=== PATIENT | female | born 1940 | race Caucasian/White ===

== ENCOUNTER → 2018-04-27 09:49 | Outpatient (CLI) | payer MEDICARE, OTHER, SELFPAY ==
--- NOTE | 2018-04-27 | DI.MG.S_ITS ---
BILATERAL DIGITAL SCREENING MAMMOGRAM 3D/2D WITH CAD: 04/27/2018 CLINICAL: Routine screening. Comparison is made to exams dated: 04/14/2017 mammogram, 04/07/2016 mammogram, and 11/12/2014 mammogram - [facility]. The tissue of both breasts is heterogeneously dense. This may lower the sensitivity of mammography. Current study was also evaluated with a Computer Aided Detection (CAD) system. No significant masses, calcifications, or other findings are seen in either breast. There has been no significant interval change. IMPRESSION: NEGATIVE There is no mammographic evidence of malignancy. A 1 year screening mammogram is recommended. This exam was interpreted at Station ID: [id number]. NOTE: For mammograms, a report in lay terms will be sent to the patient. Approximately 15% of breast malignancies will not be visualized mammographically. In the management of a palpable breast mass, a negative mammogram must not discourage biopsy of a clinically suspicious lesion. Electronically Signed By: John vo/mo:04/27/2018 10:56:09 letter sent: Normal Exam ACR BI-RADS Category 1: Negative 3341F
== END ==
PROVIDERS: PCP Family Medicine; Visit Provider Family Medicine
DX: Z12.31 Encounter for screening mammogram for malignant neoplasm of breast (principal)
CPT/HCPCS: 77063; 77067

== ENCOUNTER → 2018-04-28 12:18 | Outpatient (CLI) | payer MEDICARE, OTHER, SELFPAY ==
--- NOTE | 2018-04-28 | DI.RAD.S_ITS ---
This blank DEXA report has been sent in error by the PACS system. The correct and complete report will be forthcoming in 1-2 days. Thank you for your patience and understanding. Dictated by: Sergio Montanez M.D. on 04/28/2018 at 14:31 Approved by: Sergio Montanez M.D. on 04/28/2018 at 14:32
== END ==
PROVIDERS: PCP Family Medicine; Visit Provider Family Medicine
DX: Z13.820 Encounter for screening for osteoporosis (principal); M81.0 Age-related osteoporosis without current pathological fracture; Z78.0 Asymptomatic menopausal state; E06.3 Autoimmune thyroiditis; Z87.891 Personal history of nicotine dependence; Z90.722 Acquired absence of ovaries, bilateral
CPT/HCPCS: 77080

== ENCOUNTER → 2019-05-22 07:54 | Outpatient (CLI) | payer MEDICARE, OTHER, SELFPAY ==
--- NOTE | 2019-05-22 | DI.MG.S_ITS ---
BILATERAL DIGITAL SCREENING MAMMOGRAM 3D/2D WITH CAD: 05/22/2019 CLINICAL: Routine screening. Comparison is made to exams dated: 04/27/2018 mammogram, 04/14/2017 mammogram, and 04/07/2016 mammogram - [facility]. The tissue of both breasts is heterogeneously dense. This may lower the sensitivity of mammography. Current study was also evaluated with a Computer Aided Detection (CAD) system. There are benign vascular calcifications in both breasts. There are mole markers on both breasts. No significant masses, calcifications, or other findings are seen in either breast. There has been no significant interval change. IMPRESSION: There is no mammographic evidence of malignancy. A 1 year screening mammogram is recommended. This exam was interpreted at Station ID: [id number]. NOTE: For mammograms, a report in lay terms will be sent to the patient. Approximately 15% of breast malignancies will not be visualized mammographically. In the management of a palpable breast mass, a negative mammogram must not discourage biopsy of a clinically suspicious lesion. Electronically Signed By: Sergey ellis/mo:05/22/2019 20:38:14 letter sent: Normal Exam ACR BI-RADS Category 2: Benign Finding(s) 3342F
== END ==
PROVIDERS: PCP Family Medicine; Visit Provider Family Medicine
DX: Z12.31 Encounter for screening mammogram for malignant neoplasm of breast (principal)
CPT/HCPCS: 77063; 77067

== ENCOUNTER → 2019-06-27 16:08 | Outpatient (ROUT) | payer MEDICARE, OTHER, SELFPAY ==
[2019-06-27 16:29] LABS: Influenza A - CEPHEID Flu A NEGATIVE (NEGATIVE); Influenza B - CEPHEID Flu B NEGATIVE (NEGATIVE)
== END ==
PROVIDERS: PCP Family Medicine; Visit Provider Family Medicine
DX: R05 Cough (principal); R50.9 Fever, unspecified
CPT/HCPCS: 87502

== ENCOUNTER → 2020-04-29 12:35 | Outpatient (CLI) | payer MEDICARE, OTHER, SELFPAY | PROVIDERS: PCP Family Medicine; Referring Provider Family Medicine; Visit Provider Family Medicine | DX: M81.0 Age-related osteoporosis without current pathological fracture (principal); Z78.0 Asymptomatic menopausal state; E06.3 Autoimmune thyroiditis; Z90.722 Acquired absence of ovaries, bilateral; Z87.891 Personal history of nicotine dependence | CPT/HCPCS: 77080 ==

== ENCOUNTER → 2020-05-23 10:58 | Outpatient (CLI) | payer MEDICARE, OTHER, SELFPAY ==
--- NOTE | 2020-05-23 | DI.MG.S_ITS ---
BILATERAL DIGITAL SCREENING MAMMOGRAM 3D/2D WITH CAD: 05/23/2020 CLINICAL: Routine screening. Comparison is made to exams dated: 05/22/2019 mammogram, 04/27/2018 mammogram, and 04/14/2017 mammogram - [facility]. The tissue of both breasts is heterogeneously dense. This may lower the sensitivity of mammography. Current study was also evaluated with a Computer Aided Detection (CAD) system. There are benign vascular calcifications in both breasts. There are mole markers on both breasts. No significant masses, calcifications, or other findings are seen in either breast. There has been no significant interval change. IMPRESSION: BENIGN There is no mammographic evidence of malignancy. A 1 year screening mammogram is recommended. This exam was interpreted at Station ID: [id number]. NOTE: For mammograms, a report in lay terms will be sent to the patient. Approximately 15% of breast malignancies will not be visualized mammographically. In the management of a palpable breast mass, a negative mammogram must not discourage biopsy of a clinically suspicious lesion. Electronically Signed By: Jorge carrasco/mo:05/23/2020 13:01:40 letter sent: Normal Exam ACR BI-RADS Category 2: Benign Finding(s) 3342F
== END ==
PROVIDERS: PCP Family Medicine; Referring Provider Family Medicine; Visit Provider Family Medicine
DX: Z12.31 Encounter for screening mammogram for malignant neoplasm of breast (principal)
CPT/HCPCS: 77063; 77067

== ENCOUNTER → 2021-01-01 12:10 | Outpatient (CLI) | payer MEDICARE, OTHER, SELFPAY ==
--- NOTE | 2021-01-01 | DI.US.S_ITS ---
PROCEDURE: US THYROID INDICATIONS: GOITER TECHNIQUE: Real-time scanning was performed of the thyroid gland, with image documentation. COMPARISON: [facility], US, THYROID, 05/09/2014, 12:37. FINDINGS: Right: Thyroid lobe measures 5.5 x 2.5 x 2.3 cm, and is diffusely heterogeneous in echotexture. Left: Thyroid lobe measures 4.8 x 1.9 x 2.2 cm, and is diffusely heterogeneous in echotexture. Isthmus: 3.0 mm thick. Nodule number: 1 Location: Isthmus Size: 1.2 x 0.7 x 1.3 cm. Composition: Predominantly cystic Echogenicity: Predominantly hypoechoic Shape: wider than tall. Margins: Smooth Echogenic foci: None Total points: 2 ACR TI-RADS category: Not suspicious IMPRESSION: Non suspicious right isthmus thyroid nodule and diffusely heterogeneous thyroid. Given the small size of the nodule, no additional follow-up is warranted. ACR TI-RADS definitions and recommendations: TI-RADS 1 (benign): 0 points. FNA not needed. TI-RADS 2 (not suspicious): 2 points. FNA not needed. TI-RADS 3 (mildly suspicious): 3 points. * FNA if 2.5 cm or larger, follow up if 1.5 cm or larger (at 1, 3, and 5 years). TI-RADS 4 (moderately suspicious): 4-6 points. * FNA if 1.5 cm or larger, follow up if 1 cm or larger (at 1, 2, 3, and 5 years). TI-RADS 5 (highly suspicious): 7 points or more. * FNA if 1 cm or larger, follow up if 0.5 cm or larger (every year for 5 years). Dictated by: Osbaldo Quiroga A Interpreted: Sergio Montanez MD on 01/01/2021 at 13:30 Transcribed by: WILTON on 01/01/2021 at 13:33 Approved by: Sergio Montanez M.D. on 01/01/2021 at 15:05
== END ==
PROVIDERS: PCP Family Medicine; Referring Provider Family Medicine; Visit Provider Family Medicine
DX: E01.0 Iodine-deficiency related diffuse (endemic) goiter (principal)
CPT/HCPCS: 76536

== ENCOUNTER → 2021-06-23 11:13 | Outpatient (CLI) | payer MEDICARE, OTHER, SELFPAY ==
--- NOTE | 2021-06-23 | DI.MG.S_ITS ---
BILATERAL DIGITAL SCREENING MAMMOGRAM 3D/2D WITH CAD: 06/23/2021 CLINICAL: Routine screening. Comparison is made to exams dated: 05/23/2020 mammogram, 05/22/2019 mammogram, and 04/27/2018 mammogram - [facility]. The tissue of both breasts is heterogeneously dense. This may lower the sensitivity of mammography. Current study was also evaluated with a Computer Aided Detection (CAD) system. There are benign vascular calcifications in both breasts. There are mole markers on both breasts. No significant masses, calcifications, or other findings are seen in either breast. There has been no significant interval change. IMPRESSION: BENIGN There is no mammographic evidence of malignancy. A 1 year screening mammogram is recommended. This exam was interpreted at Station ID: [id number]. NOTE: For mammograms, a report in lay terms will be sent to the patient. Approximately 15% of breast malignancies will not be visualized mammographically. In the management of a palpable breast mass, a negative mammogram must not discourage biopsy of a clinically suspicious lesion. Electronically Signed By: Gabe Melendez acr/penrad:06/23/2021 11:59:01 letter sent: Normal Exam ACR BI-RADS Category 2: Benign Finding(s) 3342F
== END ==
PROVIDERS: PCP Family Medicine; Referring Provider Family Medicine; Visit Provider Family Medicine
DX: Z12.31 Encounter for screening mammogram for malignant neoplasm of breast (principal)
CPT/HCPCS: 77063; 77067

== ENCOUNTER 2021-08-15 16:07 | Emergency (ER) | payer MEDICARE, OTHER, SELFPAY ==
[2021-08-15 16:17] VITALS: BP 186/79; PULSE 75; RESP 16; TEMP 36.7; O2SAT 97; BMI 20.5
--- NOTE | 2021-08-15 16:34 | DI.CT.S_ITS ---
PROCEDURE: CT HEAD/BRAIN WO CON INDICATIONS: Recent Fall with head injury TECHNIQUE: Noncontrast 4.5 mm thick angled axial sections acquired from the foramen magnum to the vertex, with coronal and sagittal reformats. For radiation dose reduction, the following was used: automated exposure control, adjustment of mA and/or kV according to patient size. COMPARISON: None. FINDINGS: Image quality: Excellent. CSF spaces: Basal cisterns are patent. No extra-axial fluid collections. The ventricles are symmetric in size and shape. Brain: No intracranial bleeds or masses. There is cerebral volume loss for age, with resultant ventricular and sulcal prominence. 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 Skull and face: Calvarium and visualized facial bones appear intact, without suspicious lesions. Sinuses: Visualized sinuses and mastoids are clear. IMPRESSION: 1. No acute intracranial hemorrhage. 2. Subcentimeter hypoattenuating focus in the left anterior limb of the internal capsule, which may reflect a subacute to remote infarct. Dictated by: Nitesh Bernard M.D. on 08/15/2021 at 17:29 Approved by: Ntiesh Bernard M.D. on 08/15/2021 at 17:32
[2021-08-15 17:17] LABS: Add Manual Diff / Slide Review NO; Basophils Absolute Auto 0 /uL (0-100); Basophils Percent Auto 0.4 % (0-2); Eosinophils Absolute Auto 100 /uL (0-450); Eosinophils Percent Auto 0.7 % (2-4); Hematocrit 40.8 % (36-46); Hemoglobin 13.9 g/dL (12.0-16.0); Lymphocytes Absolute Auto 1100 /uL (1100-4500); Lymphocytes Percent Auto 15.1 % (25-40); Mean Corpuscular HGB Conc 34.1 % (30-36); Mean Corpuscular Hemoglobin 30.4 PG (26-34); Mean Corpuscular Volume 89.1 fL (80-100); Monocytes Absolute Auto 300 /uL (0-900); Monocytes Percent Auto 3.9 % (3-14); Neutrophils Absolute Auto 5900 /uL (1500-7000); Neutrophils Percent Auto 79.9 % (50-75); Platelet Count 198 X10^3/uL (150-400); Red Blood Cell Count 4.58 X10^6/uL (4.0-5.2); Red Cell Distribution Width 13.5 % (11.6-14.8); White Blood Cell Count 7.4 X10^3/uL (4.5-11.0)
[2021-08-15 17:21] LABS: COVID19 -Nasal RAPID Negative (Negative)
[2021-08-15 17:28] LABS: Alanine Aminotransferase 20 IU/L (<35); Albumin 4.5 g/dL (3.5-5.0); Albumin Globulin Ratio 1.3 (1.0-2.8); Alkaline Phosphatase 56 U/L (38-126); Aspartate Aminotransferase 33 IU/L (14-36); BUN Creatinine Ratio 23.6 (6-22); Bilirubin Total 0.6 mg/dL (0.2-1.3); Blood Urea Nitrogen 17 mg/dL (7-17); Calcium 10.1 mg/dL (8.4-10.2); Carbon Dioxide 32 mmol/L (22-32); Chloride 105 mmol/L (98-107); Estimated Glomerular Filt Rate > 60.0 mL/min (>60); Globulin 3.4 g/dL (1.7-4.1); Glucose 171 mg/dL (80-110); HEMOLYSIS 16 (0-50); Lipase 194 U/L (23-300); Sodium 142 mmol/L (137-145); Total Protein 7.9 g/dL (6.3-8.2)
[2021-08-15 17:46] LABS: Bacteria Urine None Seen; Culture Indicated Urine Cult Not Indicated; RBC Urine 5-10/HPF (0-5/HPF); Squamous Epithelial Cell Urine None Seen (0-5/HPF); WBC Urine None Seen (0-5/HPF)
--- NOTE | 2021-08-15 19:05 | ED.HA ---
HPI - Headache General Chief Complaint: Headache Stated Complaint: Chills/Dizziness, Head/Neck Pain Time Seen by Provider: 08/15/21 16:34 Mode of arrival: Ambulatory History of Present Illness HPI Narrative: Patient is a 80-year-old female history of hypothyroid presenting today with headache and neck pain. She states she has been sensitive on the top of her scalp she took some Tylenol today which did seem to help some. Today she started having worsening neck pain. She has not had any numbness tingling or weakness. She denies any blurry vision double vision difficulty speaking facial droop. She does says that her scalp is really sensitive that her neck is tender. She has not had any fever or chills. She does have a history of arthritis she thought maybe the arthritis was acting up in her. Related Data Home Medications Medication Instructions Recorded Confirmed calcium carbonate 500 mg-vitamin 1 tab PO BID #0 12/02/16 08/12/21 D3 5 mcg (200 unit) tablet (Oyster Shell Calcium-Vitamin D3) fluticasone propionate 50 1 spray INTRANASAL QDAYP PRN #0 12/02/16 08/12/21 mcg/actuation nasal spray,suspension (Flonase Allergy Relief) aspirin 81 mg chewable tablet 81 mg PO DAILY 08/12/21 08/12/21 estradiol 10 mcg vaginal tablet 10 mcg VAGINAL 2XW 08/12/21 08/12/21 (Vagifem) levothyroxine 50 mcg tablet 50 mcg PO DAILY 08/12/21 08/12/21 (Synthroid) losartan 100 mg tablet (Cozaar) 100 mg PO DAILY 08/12/21 08/12/21 tolterodine 4 mg capsule,extended 4 mg PO DAILY 08/12/21 08/12/21 release 24 hr (Detrol LA) Allergies Allergy/AdvReac Type Severity Reaction Status Date / Time enoxaparin [From LOVENOX] Allergy Severe ITCHING Verified 08/15/21 19:38 adhesive tape [ADHESIVE TAPE] Allergy Mild ERYTHEMA Verified 08/15/21 19:38 AT SITE Review of Systems Review of Systems Narrative: GENERAL: Denies chills, fatigue, malaise, fever, sweats, travel HEENT: Denies sinus pain, ear pain, sore throat, difficulty swallowing, neck pain RESPIRATORY: Denies dyspnea, cough, wheezing, hemoptysis, sputum. CARDIOVASCULAR: Denies chest pain, palpitations, orthopnea, edema GASTROINTESTINAL: Denies nausea, vomiting, abdominal pain, diarrhea, constipation, melena. : Denies dysuria, frequency, incontinence, hematuria, urinary retention, flank pain. MUSCULOSKELETAL: Denies weakness, joint pain, or bony pain SKIN: No rash, no erythema, no pruritus NEUROLOGIC: See HPI PSYCHIATRIC: No concerning psychosocial issues. 12 point review of systems is negative except for those stated above and HPI Patient History Medical History (Updated 08/15/21 @ 21:27 by Tita Gracia DO) Allergies Chicken pox (~1947) Colon polyps (~2015) Endometriosis (~1963) Fibroids (~1963) Hemorrhoid (~1979) Hypothyroidism (~1984) Measles (~1948) Osteopenia (~2014) Ovarian cyst (~1963) Painful menstrual periods (~1955) Rosacea (~2018) Thyroid nodule (~1984) Surgical History (Updated 08/12/21 @ 20:21 by Faith Fernandes) Anesthesia History of foot surgery (~1993) History of hysterectomy (~1973) History of left knee replacement (~2015) History of nasal surgery (~1984) History of right hip replacement (~2009) History of surgical removal of lesion History of tonsillectomy and adenoidectomy (~1950) Hx of removal of ovary (~1963) Perianal abscess (~1982) Family History (Updated 08/12/21 @ 20:13 by Faith Fernandes) Sister Macular degeneration Social History Smoking Status: Former smoker Smoking Status: Former smoker alcohol intake frequency: holidays/special occasions only Substance Use Type: does not use Exam Initial Vital Signs Initial Vital Signs: Vital Signs Temperature 98.1 F 08/15/21 16:17 Pulse Rate 75 08/15/21 16:17 Respiratory Rate 16 08/15/21 16:17 Blood Pressure 186/79 H 08/15/21 16:17 Pulse Oximetry 97 08/15/21 16:17 GENERAL: Alert 80-year-old female no acute distress HEENT: Head atraumatic,EOMI, pupils reactive, face symmetric, moist mucous membranes CARDIOVASCULAR: Regular rate and rhythm without murmurs, rubs or gallops. RESPIRATORY: Breath sounds equal bilaterally, no wheezes rales or rhonchi. ABDOMEN: Soft, nontender. Normoactive bowel sounds all 4 quadrants. No guarding or rebound. EXTREMITIES: Normal range of motion, no clubbing or edema. Neurovascularly intact NEUROLOGICAL: Alert and oriented x4.Normal gait and speech. Cranial nerves II through XII grossly intact. Good ioxvov-xd-azts, good lnrf-gb-whzj, strength equal bilaterally, no dysarthria or aphasia, sensation in tact to soft touch bilaterally, no visual changes, no facial droop SKIN: Warm, dry, no laceration, no petechiae, no rashes or lesions. Scores NIH Stroke Scale Level of Conciousness: Alert, keenly responsive Ask month/age: Answers both questions correctly. Open/close eyes, close hand: Performs both tasks correctly Best gaze horizontal: Normal Visual barrientos: No visual loss Facial palsy: Normal symetrical movement Left arm drift: No drift for full 10 sec Right arm drift: No drift for full 10 sec Left leg drift: No drift for full 5 sec Right leg drift: No drift for full 5 sec Limb ataxia: Absent Sensory on face/arms/legs: Normal, no sensory loss Best language: No aphasia, normal Dysarthria: Normal Extinction or inattention: No abnormality Total NIH Stroke scale score: 0 Course Orders Ordered: ED Orders 08/15/21 16:27 COVID19 -Nasal swab/Pre-Proc Stat 08/15/21 16:34 CT head/brain wo con Stat 08/15/21 16:48 Complete Blood Count AUTO DIFF Stat Comprehensive Metabolic Panel Stat Lipase Stat 08/15/21 16:55 Urine Microscopic Stat 08/15/21 19:30 CT angio head and neck Stat Discontinued Medications Ketorolac Tromethamine (Ketorolac 30 Mg/Ml Vial) 15 mg IV NOW ONE Stop: 08/15/21 19:31 Last Admin: 08/15/21 19:39 Dose: 15 mg Documented by: ATAYLOR Vital Signs Vital signs: Vital Signs - 8 hr 08/15/21 16:17 08/15/21 19:09 08/15/21 19:33 Temperature 98.1 F 97.1 F L Pulse Rate 75 74 Respiratory Rate 16 19 Blood Pressure 186/79 H 194/80 H Pulse Oximetry 97 98 08/15/21 21:33 Temperature Pulse Rate 80 Respiratory Rate 18 Blood Pressure 194/87 H Pulse Oximetry 98 MDM - Headache Lab Data Result diagrams: 08/15/21 16:48 08/15/21 16:48 Labs: Lab Results 08/15/21 08/15/21 08/15/21 Range/Units 16:27 16:48 16:48 WBC 7.4 (4.5-11.0) X10^3/uL RBC 4.58 (4.0-5.2) X10^6/uL Hgb 13.9 (12.0-16.0) g/dL Hct 40.8 (36-46) % MCV 89.1 (80-100) fL MCH 30.4 (26-34) PG MCHC 34.1 (30-36) % RDW 13.5 (11.6-14.8) % Plt Count 198 (150-400) X10^3/uL Neut % (Auto) 79.9 H (50-75) % Lymph % (Auto) 15.1 L (25-40) % [place] % (Auto) 3.9 (3-14) % Eos % (Auto) 0.7 L (2-4) % Baso % (Auto) 0.4 (0-2) % Neut # (Auto) 5900 (2386-2375) /uL Lymph # (Auto) 1100 (1965-7813) /uL [place] # (Auto) 300 (0-900) /uL Eos # (Auto) 100 (0-450) /uL Baso # (Auto) 0 (0-100) /uL Sodium 142 (137-145) mmol/L Potassium 4.0 (3.4-5.1) mmol/L Chloride 105 (98-107) mmol/L Carbon Dioxide 32 (22-32) mmol/L BUN 17 (7-17) mg/dL Creatinine 0.72 (0.52-1.04) mg/dL Estimated GFR > 60.0 (>60) mL/min BUN/Creatinine Ratio 23.6 H (6-22) Glucose 171 H (80-110) mg/dL Calcium 10.1 (8.4-10.2) mg/dL Total Bilirubin 0.6 (0.2-1.3) mg/dL AST 33 (14-36) IU/L ALT 20 (<35) IU/L Alkaline Phosphatase 56 (38-126) U/L Total Protein 7.9 (6.3-8.2) g/dL Albumin 4.5 (3.5-5.0) g/dL Globulin 3.4 (1.7-4.1) g/dL Albumin/Globulin Ratio 1.3 (1.0-2.8) Lipase 194 (23-300) U/L Urine RBC (0-5/HPF) Urine WBC (0-5/HPF) Ur Squamous Epith Cells (0-5/HPF) Urine Bacteria (None) Ur Culture Indicated? SARS-CoV-2 (PCR) Negative (Negative) 08/15/21 Range/Units 16:55 WBC (4.5-11.0) X10^3/uL RBC (4.0-5.2) X10^6/uL Hgb (12.0-16.0) g/dL Hct (36-46) % MCV (80-100) fL MCH (26-34) PG MCHC (30-36) % RDW (11.6-14.8) % Plt Count (150-400) X10^3/uL Neut % (Auto) (50-75) % Lymph % (Auto) (25-40) % [place] % (Auto) (3-14) % Eos % (Auto) (2-4) % Baso % (Auto) (0-2) % Neut # (Auto) (4763-9802) /uL Lymph # (Auto) (4472-8541) /uL [place] # (Auto) (0-900) /uL Eos # (Auto) (0-450) /uL Baso # (Auto) (0-100) /uL Sodium (137-145) mmol/L Potassium (3.4-5.1) mmol/L Chloride (98-107) mmol/L Carbon Dioxide (22-32) mmol/L BUN (7-17) mg/dL Creatinine (0.52-1.04) mg/dL Estimated GFR (>60) mL/min BUN/Creatinine Ratio (6-22) Glucose (80-110) mg/dL Calcium (8.4-10.2) mg/dL Total Bilirubin (0.2-1.3) mg/dL AST (14-36) IU/L ALT (<35) IU/L Alkaline Phosphatase (38-126) U/L Total Protein (6.3-8.2) g/dL Albumin (3.5-5.0) g/dL Globulin (1.7-4.1) g/dL Albumin/Globulin Ratio (1.0-2.8) Lipase (23-300) U/L Urine RBC 5-10/hpf H (0-5/HPF) Urine WBC None seen (0-5/HPF) Ur Squamous Epith Cells None seen (0-5/HPF) Urine Bacteria None seen (None) Ur Culture Indicated? Cult not indicated SARS-CoV-2 (PCR) (Negative) Urine Dip Bedside Urine Glucose Negative Bedside Urine Bilirubin - Negative Bedside Urine Ketone - Negative Urine Specific [place] 1.010 Bedside Urine Occult Blood + Bedside Urine pH 6.5 Bedside Urine Protein - Negative Bedside Urine Urobilinogen - Negative Bedside Urine Nitrite - Negative Bedside Urine Leukocytes - Negative Esterase Imaging Data CT scan - head: Radiologist's Impression: PROCEDURE:? CT HEAD/BRAIN WO CON ? INDICATIONS:? Recent Fall with head injury ? TECHNIQUE:? Noncontrast 4.5 mm thick angled axial sections acquired from the foramen magnum to the vertex, with coronal and sagittal reformats.? For radiation dose reduction, the following was used:? automated exposure control, adjustment of mA and/or kV according to patient size.? ? COMPARISON:? None. ? FINDINGS:? Image quality:? Excellent.? ? CSF spaces:? Basal cisterns are patent.? No extra-axial fluid collections.? The ventricles are symmetric in size and shape.? ? Brain:? No intracranial bleeds or masses.? There is cerebral volume loss for age, with resultant ventricular and sulcal prominence.? 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 ? ? Skull and face:? Calvarium and visualized facial bones appear intact, without suspicious lesions.? ? Sinuses:? Visualized sinuses and mastoids are clear.? ? IMPRESSION:? 1. No acute intracranial hemorrhage. 2. Subcentimeter hypoattenuating focus in the left anterior limb of the internal capsule, which may reflect a subacute to remote infarct.? ? ? Dictated by: Nitesh Bernard M.D. on 08/15/2021 at 17:29 ? ? Approved by: Nitesh Bernard M.D. on 08/15/2021 at 17:32 ? CTA - brain/neck: Radiologist's Impression: PROCEDURE:? CT ANGIO HEAD AND NECK ? INDICATIONS:? headache ?subacute infarct? neck pain ? TECHNIQUE:? Pre-contrast 4.5 mm thick sections acquired from the foramen magnum to the vertex.? After the administration of intravenous contrast, 1 mm thick sections acquired from the aortic arch through the [place] of [place].? Post-contrast 4.5 mm thick sections then re-acquired from the foramen magnum to the vertex.? 3-dimensional vzizums-obzzkcruc-unupvtsdnu (MIP) and/or volume rendering reformats were acquired of the central intracranial vasculature and neck separately. ? COMPARISON:? [facility], CT, CT HEAD/BRAIN WO CON, 08/15/2021, 17:02. ? FINDINGS:? Image quality:? Excellent.? ? BRAIN:? The ventricular system and cortical sulci demonstrate atrophy, consistent for the patient's stated age. There are areas of hypodensity within the periventricular and subcortical white matter.? There is no acute intra-or extra axial fluid collection. No acute hemorrhage, mass lesion or midline shift. Brainstem is unremarkable. Globes are symmetrical. Sinuses are aerated. Osseous structures are intact. ? HEAD CT ANGIOGRAPHY:? Anterior circulation:? Intracranial internal carotid arteries are normal in size and flow.? The flow within the paired anterior cerebral arteries is normal and symmetric.? The flow within the middle cerebral arteries is normal and symmetric.? The anterior communicating artery is seen.? No aneurysms are seen.? ? Posterior circulation:? Visualized portions of the vertebral arteries demonstrate normal caliber, and join to form a normal appearing basilar artery.? Flow within the posterior cerebral arteries is normal and symmetric.? No aneurysms are seen.? There is a left vertebral artery dominance. ? NECK CT ANGIOGRAPHY:? Carotid system:? The great vessels demonstrate a conventional anatomy as they arise from the aortic arch.? The origins of the common carotid arteries appear patent.? The common carotid arteries demonstrate normal caliber and courses.? The bifurcation regions are both widely patent.? The internal carotid arteries demonstrate calcifications at the origin, left greater than right.? There is approximately 40% stenosis at the origin of the left internal carotid artery and 30% on the right. ? Posterior circulation:? The origins of the vertebral arteries both appear widely patent.? The more superior extracranial portions of both vertebral arteries also demonstrate normal courses and calibers.? They join to form a normal appearing basilar artery.? ? Soft tissues:? Visualized neck soft tissues demonstrate no suspicious abnormalities.? ? Bones:? No suspicious bony lesions.? Visualized cervical spine appears normally aligned.? IMPRESSION:? ? 1. No acute intracranial process. ? 2. Moderate atrophy and chronic microvascular ischemic changes. ? 3. No areas of hemodynamically significant stenosis, vascular occlusion or aneurysmal dilation within the anterior or posterior circulation.? ? 4. 30% and 40% stenosis of the right and left internal carotid arteries bilaterally.? ? Any quantitative measurements of stenosis were performed using NASCET criteria.? ? ? Dictated by: Janny Jama M.D. on 08/15/2021 at 21:09 ?? [facility] Narrative Medical decision making narrative: Patient has had some mild headache and scalp sensitivity. Initial head CT did show possible subacute stroke but she actually does not have any stroke symptoms. CT angio showed chronic mom microvascular ischemic changes. I discussed these results with her. At this time both and patient agree that she really has not had stroke symptoms just headache and sensitive scalp and neck. At this time recommend outpatient follow-up possible outpatient MRI. As far as her neck pain possible arthritis. She is afebrile without leukocytosis there is no meningeal signs. Overall feeling a little bit better after Toradol. Discharge Plan Departure Patient Disposition: Home Clinical Impression: Headache Instructions: DI for Headache Activity Restrictions/Additional Instructions: *You have been diagnosed with headache *What to do: CT showed perhaps over remote stroke however the repeat CT did not show sign of stroke. You are not having signs or symptoms of a stroke today. You may need an outpatient MRI with her primary care provider. At this time her symptoms are more consistent with a headache. *Continue to take medications as directed Tylenol 650 mg every 4-6 hours if needed for lmkz-du-bqtbrjnw pain Ibuprofen 600 mg every 8 hours if needed for fxiw-hb-egulsoci *Follow up with your primary care provider in 2-3 days or call [phone] *Return to ER if you should have increasing weakness numbness tingling speech difficulty vision changes or any new, worsening or concerning symptoms Prescriptions: No Action calcium carbonate-vitamin D3 [Oyster Shell Calcium-Vit D3] 500 MG/200 IU tablet 1 tab PO BID Qty: 0 0RF fluticasone propionate [Flonase Allergy Relief] 9.9 ML spray,suspension 1 spray Intranasal QDAYP PRNQty: 0 0RF estradiol [Vagifem] 10 mcg tablet 10 mcg vaginal 2XW 0RF losartan [Cozaar] 100 mg tablet 100 mg PO DAILY 0RF levothyroxine [Synthroid] 50 mcg tablet 50 mcg PO DAILY 0RF tolterodine [Detrol LA] 4 mg capsule,extended release 24hr 4 mg PO DAILY 0RF aspirin 81 mg tablet,chewable 81 mg PO DAILY 0RF Referrals: Rhona Salomon MD [Primary Care Provider] -
[2021-08-15 19:09] VITALS: RESP 19
--- NOTE | 2021-08-15 19:30 | DI.CT.S_ITS ---
PROCEDURE: CT ANGIO HEAD AND NECK INDICATIONS: headache ?subacute infarct neck pain TECHNIQUE: Pre-contrast 4.5 mm thick sections acquired from the foramen magnum to the vertex. After the administration of intravenous contrast, 1 mm thick sections acquired from the aortic arch through the [place] of [place]anda. Post-contrast 4.5 mm thick sections then re-acquired from the foramen magnum to the vertex. 3-dimensional hdngwui-bbdqvqztt-rqkstqpztb (MIP) and/or volume rendering reformats were acquired of the central intracranial vasculature and neck separately. COMPARISON: [facility], CT, CT HEAD/BRAIN WO CON, 08/15/2021, 17:02. FINDINGS: Image quality: Excellent. BRAIN: The ventricular system and cortical sulci demonstrate atrophy, consistent for the patient's stated age. There are areas of hypodensity within the periventricular and subcortical white matter. There is no acute intra-or extra axial fluid collection. No acute hemorrhage, mass lesion or midline shift. Brainstem is unremarkable. Globes are symmetrical. Sinuses are aerated. Osseous structures are intact. HEAD CT ANGIOGRAPHY: Anterior circulation: Intracranial internal carotid arteries are normal in size and flow. The flow within the paired anterior cerebral arteries is normal and symmetric. The flow within the middle cerebral arteries is normal and symmetric. The anterior communicating artery is seen. No aneurysms are seen. Posterior circulation: Visualized portions of the vertebral arteries demonstrate normal caliber, and join to form a normal appearing basilar artery. Flow within the posterior cerebral arteries is normal and symmetric. No aneurysms are seen. There is a left vertebral artery dominance. NECK CT ANGIOGRAPHY: Carotid system: The great vessels demonstrate a conventional anatomy as they arise from the aortic arch. The origins of the common carotid arteries appear patent. The common carotid arteries demonstrate normal caliber and courses. The bifurcation regions are both widely patent. The internal carotid arteries demonstrate calcifications at the origin, left greater than right. There is approximately 40% stenosis at the origin of the left internal carotid artery and 30% on the right. Posterior circulation: The origins of the vertebral arteries both appear widely patent. The more superior extracranial portions of both vertebral arteries also demonstrate normal courses and calibers. They join to form a normal appearing basilar artery. Soft tissues: Visualized neck soft tissues demonstrate no suspicious abnormalities. Bones: No suspicious bony lesions. Visualized cervical spine appears normally aligned. IMPRESSION: 1. No acute intracranial process. 2. Moderate atrophy and chronic microvascular ischemic changes. 3. No areas of hemodynamically significant stenosis, vascular occlusion or aneurysmal dilation within the anterior or posterior circulation. 4. 30% and 40% stenosis of the right and left internal carotid arteries bilaterally. Any quantitative measurements of stenosis were performed using NASCET criteria. Dictated by: Janny Jama M.D. on 08/15/2021 at 21:09 Approved by: Janny Jama M.D. on 08/15/2021 at 21:12
[2021-08-15 19:33] VITALS: BP 194/80; PULSE 74; TEMP 36.2; O2SAT 98
[2021-08-15] MEDS: KETOROLAC 30 MG/ML VIAL 15 MG IV (19:39)
[2021-08-15 21:33] VITALS: BP 194/87; PULSE 80; RESP 18; O2SAT 98
== END 2021-08-15 21:36 | disposition home or self-care (01) ==
PROVIDERS: Emergency Medicine; Emergency Provider Emergency Medicine; PCP Family Medicine
DX: R51.9 Headache, unspecified (principal); M54.2 Cervicalgia; Z20.822 Contact with and (suspected) exposure to COVID-19
CPT/HCPCS: 36415; 70450; 70496; 70498; 80053; 81003; 81015; 83690; 85025; 87635; 96374; 99284; C9803; J1885; Q9967

== ENCOUNTER → 2021-08-19 14:50 | Outpatient (CLI) | payer MEDICARE, OTHER, SELFPAY ==
--- NOTE | 2021-08-19 14:54 | DI.RAD.S_ITS ---
PROCEDURE: XR CERVICAL SPINE 2V OR 3V INDICATIONS: NECK PAIN TECHNIQUE: 3 view(s) of the cervical spine were acquired. COMPARISON: None. FINDINGS: Bones: No fractures or dislocations to the C7 level. Endplate osteophytosis. The disc space heights are maintained. Uncovertebral/facet arthrosis is noted. The lateral masses of C1 appear intact on the odontoid view. No suspicious bony lesions. Soft tissues: No prevertebral soft tissue swelling. IMPRESSION: Cervical degeneration as detailed above. Dictated by: Nitesh Bernard M.D. on 08/19/2021 at 16:27 Approved by: Nitesh Bernard M.D. on 08/19/2021 at 16:27
== END ==
PROVIDERS: PCP Family Medicine; Referring Provider Family Medicine; Visit Provider Family Medicine
DX: S46.819A Strain of other muscles, fascia and tendons at shoulder and upper arm level, unspecified arm, initial encounter (principal); G44.209 Tension-type headache, unspecified, not intractable; M50.30 Other cervical disc degeneration, unspecified cervical region
CPT/HCPCS: 72040

== ENCOUNTER → 2021-08-21 12:14 | Outpatient (CLI) | payer MEDICARE, OTHER, SELFPAY ==
--- NOTE | 2021-08-21 | DI.MRI.S_ITS ---
PROCEDURE: MR HEAD/BRAIN WO/W CON INDICATIONS: Tension-type headache, unspecified, not intractable TECHNIQUE: Noncontrast axial T1 spin echo, axial T2 fast spin echo, sagittal and axial FLAIR, coronal T2 fast spin echo, axial gradient echo, axial diffusion and ADC through the brain. After the administration of contrast, axial and coronal T1 spin echo with fat saturation through the brain. COMPARISON: [facility], CT, CT ANGIO HEAD AND NECK, 08/15/2021, 19:55. [facility], CT, CT HEAD/BRAIN WO CON, 08/15/2021, 17:02. FINDINGS: Image quality: This examination is limited by involuntary motion artifact. CSF spaces: Basal cisterns are patent. No extra-axial fluid collections. Ventricles are normal in size and shape. Brain: No midline shift. No intracranial bleeds or masses. No abnormal intracranial enhancement. There is cerebral volume loss for age. There is periventricular white matter chronic small vessel ischemic change. The brainstem appears normal. Diffusion-weighted images demonstrate no acute ischemic insults. Scrutiny is given to the anterior aspect of the left internal capsule and no findings of acute or subacute infarction can be seen at this site.. Normal intravascular flow voids are present. Skull and face: Calvarial marrow is normal in signal. Orbits appear normal. Sinuses: Sinuses and mastoids appear clear. IMPRESSION: Unremarkable intracranial study, without an imaging explanation found for the patient's presenting history of headache. No masses or abnormal enhancement can be seen. No findings of acute or subacute infarction can be seen. Note is made of age-appropriate brain parenchymal volume loss and chronic small vessel ischemic changes. Dictated by: Bobby Sanders M.D. on 08/21/2021 at 12:52 Approved by: Bobby Sanders M.D. on 08/21/2021 at 12:54
== END ==
PROVIDERS: PCP Family Medicine; Referring Provider Family Medicine; Visit Provider Family Medicine
DX: G44.209 Tension-type headache, unspecified, not intractable (principal)
CPT/HCPCS: 70553

== ENCOUNTER 2021-09-01 19:42 | Emergency (ER) | payer MEDICARE, OTHER, SELFPAY ==
[2021-09-01 19:50] VITALS: BP 201/94; PULSE 78; RESP 16; TEMP 36.4; O2SAT 97
[2021-09-01 20:37] LABS: Bacteria Urine None Seen; Culture Indicated Urine Cult Not Indicated; RBC Urine 0-1/HPF (0-5/HPF); Squamous Epithelial Cell Urine 1-5 /HPF (0-5/HPF); WBC Urine 0-1/HPF (0-5/HPF)
--- NOTE | 2021-09-01 22:19 | ED_ITS ---
HPI - Recheck/Abnormal Lab/Rx General Chief Complaint: Recheck/Abnormal Lab/Rx Stated Complaint: Shaking/Can't Swallow/High BP/Frequent Urination Time Seen by Provider: 09/01/21 21:43 Source: patient and family Mode of arrival: Ambulatory History of Present Illness HPI narrative: 80-year-old female former smoker with history of hypertension hypothyroidism presents with daughter and a chief complaint of not feeling well at least for the past few days. she was seen and evaluated here on August 15 and had an extensive workup including advanced imaging and MRI follow-up without any significant findings. Patient has had various symptoms in the aftermath including vague headache and dizziness as well as difficulty swallowing her pil ls. She states that she is able to drink and eat without any difficulty and controls her secretions without trouble but when attempting to swallow pills she feels like they get stuck in the back of her throat. As a result she has not been taking her medications as directed and her blood pressure has been climbing. She has no chest pain or shortness of breath. She has no nausea, vomiting or diarrhea. And she has had a few episodes of uncontrolled shaking which seem to be in the immediate aftermath of 1 of the episodes and but she struggles to take her pill. She has not attempted to crush her pills as of yet. She was seen and evaluated at the walk-in clinic today and had a thorough eval uation which checked out in a reassuring fashion, she was discharged home and encouraged to follow closely. Related Data Home Medications Medication Instructions Recorded Confirmed calcium carbonate 500 mg-vitamin 1 tab PO BID #0 12/02/16 09/01/21 D3 5 mcg (200 unit) tablet (Oyster Shell Calcium-Vitamin D3) fluticasone propionate 50 1 spray INTRANASAL QDAYP PRN #0 12/02/16 09/01/21 mcg/actuation nasal spray,suspension (Flonase Allergy Relief) aspirin 81 mg chewable tablet 81 mg PO DAILY 08/12/21 09/01/21 estradiol 10 mcg vaginal tablet 10 mcg VAGINAL 2XW 08/12/21 09/01/21 (Vagifem) levothyroxine 50 mcg tablet 50 mcg PO DAILY 08/12/21 09/01/21 (Synthroid) losartan 100 mg tablet (Cozaar) 100 mg PO DAILY 08/12/21 09/01/21 tolterodine 4 mg capsule,extended 4 mg PO DAILY 08/12/21 09/01/21 release 24 hr (Detrol LA) Allergies Allergy/AdvReac Type Severity Reaction Status Date / Time enoxaparin [From LOVENOX] Allergy Severe ITCHING Verified 09/01/21 16:54 adhesive tape [ADHESIVE TAPE] Allergy Mild ERYTHEMA Verified 09/01/21 16:54 AT SITE Review of Systems Review of Systems Narrative: GENERAL: See HPI HEENT: Denies sinus pain, ear pain, sore throat, difficulty swallowing, dizziness. RESPIRATORY: Denies dyspnea, cough, wheezing, hemoptysis, sputum. CARDIOVASCULAR: Denies chest pain, palpitations, orthopnea, edema, GASTROINTESTINAL: Denies nausea, vomiting, abdominal pain, diarrhea, constipation, melena. : Denies dysuria, frequency, incontinence, hematuria, urinary retention. MUSCULOSKELETAL: denies weakness, joint pain, or bony pain SKIN: Denies rash, skin lesions, or other NEUROLOGIC: See HPI PSYCHIATRIC: No concerning psychosocial issues. 12 point review of systems is negative except for those stated above Patient History Medical History Allergies Chicken pox (~194) Colon polyps (~2015) Endometriosis (~1963) Fibroids (~1963) Hemorrhoid (~1979) Hypothyroidism (~1984) Measles (~194) Osteopenia (~2014) Ovarian cyst (~1963) Painful menstrual periods (~1955) Rosacea (~2019) Thyroid nodule (~1985) Surgical History Anesthesia History of foot surgery (~1993) History of hysterectomy (~1974) History of left knee replacement (~2016) History of nasal surgery (~1984) History of right hip replacement (~2009) History of surgical removal of lesion History of tonsillectomy and adenoidectomy (~1950) Hx of removal of ovary (~1963) Perianal abscess (~1982) Family History Sister Macular degeneration Social History Smoking Status: Former smoker Smoking Status: Former smoker alcohol intake frequency: holidays/special occasions only Substance Use Type: does not use Exam Narrative Exam Narrative: GENERAL: [72 year old patient appears stated age. Well-developed patient, in mild distress. HEAD: Atraumatic. Normocephalic. EYES: Pupils equal round and reactive. Extraocular motions intact. No scleral icterus. No injection or drainage. ENT: Moist mucous membranes, no difficulty controlling secretions. Nose with out bleeding, purulent drainage. Throat without erythema, tonsillar hypertrophy or exudate. Airway patent. NECK: Trachea midline. Non tender CARDIOVASCULAR: Regular rate and rhythm without murmurs, gallops, or rubs. RESPIRATORY: Clear to auscultation. Breath sounds equal bilaterally. No wheezes, rales, or rhonchi. GASTROINTESTINAL: Abdomen soft, non-tender, nondistended. EXTREMITIES: No edema or joint tenderness. BACK: Nontender without deformity or crepitance. No flank tenderness. NEURO: AOx3. SKIN: No rash or erythema of visible areas NIH Stroke Scale 1a. LOC: Patient is alert and keenly responsive (0) 1b. LOC Questions: Patient answers both LOC questions accurately (0) 1c. LOC Commands: Patient performs both tasks correctly (0) 2. Best Gaze: Normal (0) 3. Visual: No visual loss (0) 4. Facial palsy: Normal symmetrical movements (0) 5. Motor arm: No drift (0) 6. Motor leg: No drift (0) 7. Limb ataxia: Absent (0) 8. Sensory: Normal (0) 9. Best language: No aphasia; normal (0) 10. Dysarthria: Normal (0) 11. Extinction and inattention: No abnormality (0) NIHSS: 0 Initial Vital Signs Initial Vital Signs: Vital Signs Temperature 97.5 F L 09/01/21 19:50 Pulse Rate 78 09/01/21 19:50 Respiratory Rate 16 09/01/21 19:50 Blood Pressure 201/94 H 09/01/21 19:50 Pulse Oximetry 97 09/01/21 19:50 Course Orders Ordered: ED Orders 09/01/21 20:26 Urine Microscopic Stat 09/01/21 23:16 CT angio head and neck Stat 09/01/21 23:17 CT head/brain wo con Stat 09/01/21 23:30 Complete Blood Count AUTO DIFF Stat Comprehensive Metabolic Panel Stat Troponin & CK Cardiac Panel Stat Discontinued Medications Amlodipine Besylate (Amlodipine 5 Mg Tablet) 10 mg PO NOW ONE Stop: 09/01/21 23:56 Last Admin: 09/02/21 00:15 Dose: 10 mg Documented by: REYNOLD Vital Signs Vital signs: Vital Signs - 8 hr 09/01/21 23:49 09/01/21 23:50 09/02/21 00:00 Pulse Rate 83 81 72 Respiratory Rate Blood Pressure 194/78 H 167/73 H Pulse Oximetry 96 95 98 09/02/21 00:24 09/02/21 00:30 09/02/21 01:00 Pulse Rate 72 70 77 Respiratory Rate 20 Blood Pressure 167/73 H 190/81 H 167/72 H Pulse Oximetry 97 97 97 09/02/21 01:30 09/02/21 02:00 Pulse Rate 74 75 Respiratory Rate Blood Pressure 145/65 H Pulse Oximetry 97 98 MDM - Recheck/Abnormal Lab/Rx Lab Data Result diagrams: 09/01/21 23:30 09/01/21 23:30 Labs: Lab Results 09/01/21 09/01/21 09/01/21 Range/Units 20:26 23:30 23:30 WBC 7.9 (4.5-11.0) X10^3/uL RBC 4.45 (4.0-5.2) X10^6/uL Hgb 13.3 (12.0-16.0) g/dL Hct 39.7 (36-46) % MCV 89.3 (80-100) fL MCH 29.8 (26-34) PG MCHC 33.4 (30-36) % RDW 13.6 (11.6-14.8) % Plt Count 213 (150-400) X10^3/uL Neut % (Auto) 70.0 (50-75) % Lymph % (Auto) 20.0 L (25-40) % Meagher % (Auto) 8.3 (3-14) % Eos % (Auto) 1.4 L (2-4) % Baso % (Auto) 0.3 (0-2) % Neut # (Auto) 5500 (2817-9372) /uL Lymph # (Auto) 1600 (8584-5964) /uL Meagher # (Auto) 700 (0-900) /uL Eos # (Auto) 100 (0-450) /uL Baso # (Auto) 0 (0-100) /uL Sodium 137 (137-145) mmol/L Potassium 4.0 (3.4-5.1) mmol/L Chloride 103 (98-107) mmol/L Carbon Dioxide 29 (22-32) mmol/L BUN 11 (7-17) mg/dL Creatinine 0.70 (0.52-1.04) mg/dL Estimated GFR > 60.0 (>60) mL/min BUN/Creatinine Ratio 15.7 (6-22) Glucose 102 (80-110) mg/dL Calcium 10.1 (8.4-10.2) mg/dL Total Bilirubin 0.7 (0.2-1.3) mg/dL AST 25 (14-36) IU/L ALT 17 (<35) IU/L Alkaline Phosphatase 59 (38-126) U/L Total Creatine Kinase 63 (30-135) U/L CK-MB (CK-2) TNP CK-MB (CK-2) Rel Index TNP Troponin I 0.035 H (0.01-0.034) ng/mL Total Protein 8.0 (6.3-8.2) g/dL Albumin 4.7 (3.5-5.0) g/dL Globulin 3.3 (1.7-4.1) g/dL Albumin/Globulin Ratio 1.4 (1.0-2.8) Urine RBC 0-1/hpf (0-5/HPF) Urine WBC 0-1/hpf (0-5/HPF) Ur Squamous Epith Cells 1-5 /hpf (0-5/HPF) Urine Bacteria None seen (None) Ur Culture Indicated? Cult not indicated Urine Dip Bedside Urine Glucose Negative Bedside Urine Bilirubin - Negative Bedside Urine Ketone - Negative Urine Specific [place] 1.015 Bedside Urine Occult Blood +/- Bedside Urine pH 6.0 Bedside Urine Protein - Negative Bedside Urine Urobilinogen - Negative Bedside Urine Nitrite - Negative Bedside Urine Leukocytes - Negative Esterase Imaging Data CT scan - head: Radiologist's Impression: Shannon Jackson??80??F??1940 ? Allergy/Adv: enoxaparin, adhesive tape (More??) Close Head CT (Signed) Maximo Anderson - 09/01/21 Head/Neck CTA (Signed) Maximo Anderson - 09/01/21 Brain MRI (Signed) Bobby Sanders - 08/21/21 Cervical Spine X-Ray (Signed) Nitesh Bernard - 08/19/21 Head/Neck CTA (Signed) JamaJanny - 08/15/[address] (Signed) EmmonsNitesh raymundo - 08/15/21 Mammogram Screening (Signed) Gabe Melendez - 06/23/21 Thyroid Ultrasound (Signed) Sergio Montanez - 01/01/21 Mammogram Screening (Signed) Jorge Bui - 05/23/20 Bone Densitometry 04/29/20 Mammogram Screening (Signed) ChuyOgludivina - 05/22/19 Bone Densitometry (Signed) Sergio Montanez - 04/28/18 Mammogram Screening (Signed) John Keenan - 04/27/18 [place] [address] CT Scan Report Signed Patient: Shannon Jackson MR#: [id number] : 1940 Acct:[id number] Age/Sex: 80 / F Date of Service: 09/01/21 Loc: Accession Number: [id number] ?? Procedure: CT head/brain wo con Ordering Provider: Maik Ramirez D.O. PROCEDURE:? CT HEAD/BRAIN WO CON ? INDICATIONS:? dizzy, lightheaded ? TECHNIQUE:? Noncontrast 4.5 mm thick angled axial sections acquired from the foramen magnum to the vertex, with coronal and sagittal reformats.? For radiation dose reduction, the following was used:? automated exposure control, adjustment of mA and/or kV according to patient size.? ? COMPARISON:? [facility], CT, CT HEAD/BRAIN WO CON, 08/15/2021, 17:02. ? FINDINGS:? Image quality:? Excellent.? ? CSF spaces:? Basal cisterns are patent.? No extra-axial fluid collections.? The ventricles are symmetric in size and shape.? ? Brain:? No intracranial bleeds or masses.? There is cerebral volume loss for age, with resultant ventricular and sulcal prominence.? There are periventricular and deep white matter chronic small vessel ischemic changes.? There is intracranial internal carotid artery atherosclerosis.? ? Skull and face:? Calvarium and visualized facial bones appear intact, without suspicious lesions.? ? Sinuses:? Visualized sinuses and mastoids are clear.? ? IMPRESSION:? No evidence acute stroke, hemorrhage, or mass. ? ? Dictated by: Maximo Anderson M.D. on 09/01/2021 at 23:59 ? ? Approved by: Maximo Anderson M.D. on 09/02/2021 at 0:00 ? CTA Head/Neck: Radiologist's Impression: Shannon Jackson??80??F??1940 ? Allergy/Adv: enoxaparin, adhesive tape (More??) Close Head CT (Signed) Maximo Anderson - 09/01/21 Head/Neck CTA (Signed) Maximo Anderson - 09/01/21 Brain MRI (Signed) Bobby Sanders - 08/21/21 Cervical Spine X-Ray (Signed) Nitesh Bernard - 08/19/21 Head/Neck CTA (Signed) Janny Jama - 08/15/[address] (Signed) Nitesh Bernard - 08/15/21 Mammogram Screening (Signed) Gabe Melendez - 06/23/21 Thyroid Ultrasound (Signed) Sergio Montanez - 01/01/21 Mammogram Screening (Signed) Jorge Bui - 05/23/20 Bone Densitometry 04/29/20 Mammogram Screening (Signed) Sergey Vera - 05/22/19 Bone Densitometry (Signed) Sergio Montanez - 04/28/18 Mammogram Screening (Signed) John Keenan - 04/27/18 [place] [address] CT Scan Report Signed Patient: Shannon Jackson MR#: [id number] : 1940 Acct:[id number] Age/Sex: 80 / F Date of Service: 09/01/21 Loc: Accession Number: [id number] ?? Procedure: CT angio head and neck Ordering Provider: Maik Ramirez D.O. PROCEDURE:? CT ANGIO HEAD AND NECK ? INDICATIONS:? altered, stroke symptoms ? TECHNIQUE:? After the administration of intravenous contrast, 1 mm thick sections acquired from the aortic arch through the [place] of Aranda.? Post-contrast 4.5 mm thick sections then re-acquired from the foramen magnum to the vertex.? 3-dimensional jtpnlja-eqlqkrcjp-loyawtqeqn (MIP) and/or volume rendering reformats were acquired of the central intracranial vasculature and neck separately. ? COMPARISON:? [facility], CT, CT HEAD/BRAIN WO CON, 09/01/2021, 23:26.? [facility], CT, CT ANGIO HEAD AND NECK, 08/15/2021, 19:55. ? FINDINGS:? Image quality:? Excellent.? ? BRAIN:? CSF spaces:? Ventricles are normal in size and shape.? Basal cisterns are patent.? No extra-axial fluid collections.? ? Brain:? No midline shift.? No intracranial bleeds or masses.? Lopes-white matter interface appears intact.? ? Skull and face:? Calvarium and facial bones appear intact, without suspicious lesions.? Orbits appear normal.? ? Sinuses:? Sinuses and mastoids are clear.? ? HEAD CT ANGIOGRAPHY:? Anterior circulation:? Intracranial internal carotid arteries are normal in size and flow.? The flow within the paired anterior cerebral arteries is normal and symmetric.? The flow within the middle cerebral arteries is normal and symmetric.? The anterior communicating artery is seen.? No aneurysms are seen.? ? Posterior circulation:? Visualized portions of the vertebral arteries demonstrate normal caliber, and join to form a normal appearing basilar artery.? Flow within the posterior cerebral arteries is normal and symmetric.? No aneurysms are seen.? ? NECK CT ANGIOGRAPHY:? Carotid system:? The great vessels demonstrate a conventional anatomy as they arise from the aortic arch.? The origins of the common carotid arteries appear patent.? The common carotid arteries demonstrate normal caliber and courses.? The bifurcation regions are both widely patent.? Mild bilateral proximal internal carotid artery stenosis, 30% or less bilaterally. ? Posterior circulation:? The origins of the vertebral arteries both appear widely patent.? The more superior extracranial portions of both vertebral arteries also demonstrate normal courses and calibers.? They join to form a normal appearing basilar artery.? ? Soft tissues:? Visualized neck soft tissues demonstrate no suspicious abnormalities.? ? Bones:? No suspicious bony lesions.? Visualized cervical spine appears normally aligned.? IMPRESSION:? ? 1. Age-related volume loss and small vessel ischemic change. ? 2. No evidence acute stroke, hemorrhage, or mass. ? 3. Unremarkable CTA head.? No stenosis, aneurysm, occlusion, or focal filling defect. ? 4. Mild bilateral internal carotid artery proximal stenosis, less than 50%.? ? Any quantitative measurements of stenosis were performed using NASCET criteria.? ? ? Dictated by: Maximo Anderson M.D. on 09/01/2021 at 23:52 ? ? Approved by: Maximo Anderson M.D. on 09/01/2021 at 23:58 ? MDM Narrative Medical decision making narrative: Patient has reassuring history and physical exam. She has no focal neurologic findings on exam and biggest complaint is of inability to swallow her pills. She is able to swallow liquids including water as well as food without difficulty. Furthermore, she can control secretions without difficulty. Low suspicion for esophageal stricture, obstruction, food bolus or other. Imaging i s very reassuring and shows no evidence of stroke, or esophageal obstructive process, otherwise quite similar to recent imaging. She had no difficulty swallowing a crushed pill in applesauce and after which her vital signs and improved with a blood pressure down into the 140s. The etiology of her episodes of shaking are unclear though there is no obvious source of infection and no electrolyte abnormality. It seems that these episodes have a close temporal relationship with episodes of inability to swallow her pills. At this point time there is no indication for hospitalization, patient can tolerate orals, is in no distress and shows no sign of stroke. Though she may end up needing swallo w study or EGD there is no indication that this would required hospitalization. She has upcoming appointment with primary care provider, return precautions discussed and questions answered to their apparent satisfaction Discharge Plan Departure Patient Disposition: Home Clinical Impression: Hypertension Activity Restrictions/Additional Instructions: *You have been diagnosed with [hypertension, most likely due to not taking medications. History and physical exam are very reassuring as are the lab work and all of the imaging. There is no evidence of any stroke or obstructive issue in the throat. *What to do: *Please continue to take your regular medications as directed. In the [facility] department you were able to successfully take your blood pressure medication will be crushed and put in applesauce, [ ] New medication prescriptions sent to your pharmacy: [ ] [ ] New medication written as a paper prescription [ ] No new medications given *Please follow up with your primary care provider on Wednesday as planned. Let them know you were seen in the Emergency Department and that we ask that you be seen in follow up. We will electronically transmit a record of today's note *If you do not have a primary care provider please contact the [facility] Resource line at [phone]. They will ask some questions about your medical history and help get you set up with a doctor in the community. *Return to Emergency Department if you should have any new, worsening or concerning symptoms, such as [fever greater than 101 F, shaking chills, wor sening pain, persistent vomiting or other bothersome symptoms] Prescriptions: No Action calcium carbonate-vitamin D3 [Oyster Shell Calcium-Vit D3] 500 MG/200 IU tablet 1 tab PO BID Qty: 0 0RF fluticasone propionate [Flonase Allergy Relief] 9.9 ML spray,suspension 1 spray Intranasal QDAYP PRNQty: 0 0RF estradiol [Vagifem] 10 mcg tablet 10 mcg vaginal 2XW 0RF losartan [Cozaar] 100 mg tablet 100 mg PO DAILY 0RF levothyroxine [Synthroid] 50 mcg tablet 50 mcg PO DAILY 0RF tolterodine [Detrol LA] 4 mg capsule,extended release 24hr 4 mg PO DAILY 0RF aspirin 81 mg tablet,chewable 81 mg PO DAILY 0RF Referrals: Rhona Salomon MD [Primary Care Provider] -
--- NOTE | 2021-09-01 23:16 | DI.CT.S_ITS ---
PROCEDURE: CT ANGIO HEAD AND NECK INDICATIONS: altered, stroke symptoms TECHNIQUE: After the administration of intravenous contrast, 1 mm thick sections acquired from the aortic arch through the Squires of Aranda. Post-contrast 4.5 mm thick sections then re-acquired from the foramen magnum to the vertex. 3-dimensional zumqolg-oyioxades-okpvbmuvah (MIP) and/or volume rendering reformats were acquired of the central intracranial vasculature and neck separately. COMPARISON: [facility], CT, CT HEAD/BRAIN WO CON, 09/01/2021, 23:26. [facility], CT, CT ANGIO HEAD AND NECK, 08/15/2021, 19:55. FINDINGS: Image quality: Excellent. BRAIN: CSF spaces: Ventricles are normal in size and shape. Basal cisterns are patent. No extra-axial fluid collections. Brain: No midline shift. No intracranial bleeds or masses. Lopes-white matter interface appears intact. Skull and face: Calvarium and facial bones appear intact, without suspicious lesions. Orbits appear normal. Sinuses: Sinuses and mastoids are clear. HEAD CT ANGIOGRAPHY: Anterior circulation: Intracranial internal carotid arteries are normal in size and flow. The flow within the paired anterior cerebral arteries is normal and symmetric. The flow within the middle cerebral arteries is normal and symmetric. The anterior communicating artery is seen. No aneurysms are seen. Posterior circulation: Visualized portions of the vertebral arteries demonstrate normal caliber, and join to form a normal appearing basilar artery. Flow within the posterior cerebral arteries is normal and symmetric. No aneurysms are seen. NECK CT ANGIOGRAPHY: Carotid system: The great vessels demonstrate a conventional anatomy as they arise from the aortic arch. The origins of the common carotid arteries appear patent. The common carotid arteries demonstrate normal caliber and courses. The bifurcation regions are both widely patent. Mild bilateral proximal internal carotid artery stenosis, 30% or less bilaterally. Posterior circulation: The origins of the vertebral arteries both appear widely patent. The more superior extracranial portions of both vertebral arteries also demonstrate normal courses and calibers. They join to form a normal appearing basilar artery. Soft tissues: Visualized neck soft tissues demonstrate no suspicious abnormalities. Bones: No suspicious bony lesions. Visualized cervical spine appears normally aligned. IMPRESSION: 1. Age-related volume loss and small vessel ischemic change. 2. No evidence acute stroke, hemorrhage, or mass. 3. Unremarkable CTA head. No stenosis, aneurysm, occlusion, or focal filling defect. 4. Mild bilateral internal carotid artery proximal stenosis, less than 50%. Any quantitative measurements of stenosis were performed using NASCET criteria. Dictated by: Maximo Anderson M.D. on 09/01/2021 at 23:52 Approved by: Maximo Anderson M.D. on 09/01/2021 at 23:58
--- NOTE | 2021-09-01 23:17 | DI.CT.S_ITS ---
PROCEDURE: CT HEAD/BRAIN WO CON INDICATIONS: dizzy, lightheaded TECHNIQUE: Noncontrast 4.5 mm thick angled axial sections acquired from the foramen magnum to the vertex, with coronal and sagittal reformats. For radiation dose reduction, the following was used: automated exposure control, adjustment of mA and/or kV according to patient size. COMPARISON: [facility], CT, CT HEAD/BRAIN WO CON, 08/15/2021, 17:02. FINDINGS: Image quality: Excellent. CSF spaces: Basal cisterns are patent. No extra-axial fluid collections. The ventricles are symmetric in size and shape. Brain: No intracranial bleeds or masses. There is cerebral volume loss for age, with resultant ventricular and sulcal prominence. There are periventricular and deep white matter chronic small vessel ischemic changes. There is intracranial internal carotid artery atherosclerosis. Skull and face: Calvarium and visualized facial bones appear intact, without suspicious lesions. Sinuses: Visualized sinuses and mastoids are clear. IMPRESSION: No evidence acute stroke, hemorrhage, or mass. Dictated by: Maximo Anderson M.D. on 09/01/2021 at 23:59 Approved by: Maximo Anderson M.D. on 09/02/2021 at 0:00
[2021-09-01 23:42] LABS: Add Manual Diff / Slide Review NO; Basophils Absolute Auto 0 /uL (0-100); Basophils Percent Auto 0.3 % (0-2); Eosinophils Absolute Auto 100 /uL (0-450); Eosinophils Percent Auto 1.4 % (2-4); Hematocrit 39.7 % (36-46); Hemoglobin 13.3 g/dL (12.0-16.0); Lymphocytes Absolute Auto 1600 /uL (1100-4500); Mean Corpuscular HGB Conc 33.4 % (30-36); Mean Corpuscular Hemoglobin 29.8 PG (26-34); Mean Corpuscular Volume 89.3 fL (80-100); Monocytes Absolute Auto 700 /uL (0-900); Monocytes Percent Auto 8.3 % (3-14); Neutrophils Absolute Auto 5500 /uL (1500-7000); Platelet Count 213 X10^3/uL (150-400); Red Blood Cell Count 4.45 X10^6/uL (4.0-5.2); Red Cell Distribution Width 13.6 % (11.6-14.8); White Blood Cell Count 7.9 X10^3/uL (4.5-11.0)
[2021-09-01 23:49] VITALS: PULSE 83; O2SAT 96
[2021-09-01 23:50] VITALS: BP 194/78; PULSE 81; O2SAT 95
[2021-09-01 23:53] LABS: Alanine Aminotransferase 17 IU/L (<35); Albumin 4.7 g/dL (3.5-5.0); Albumin Globulin Ratio 1.4 (1.0-2.8); Alkaline Phosphatase 59 U/L (38-126); Aspartate Aminotransferase 25 IU/L (14-36); BUN Creatinine Ratio 15.7 (6-22); Bilirubin Total 0.7 mg/dL (0.2-1.3); Blood Urea Nitrogen 11 mg/dL (7-17); Calcium 10.1 mg/dL (8.4-10.2); Carbon Dioxide 29 mmol/L (22-32); Chloride 103 mmol/L (98-107); Creatine Kinase 63 U/L (30-135); Estimated Glomerular Filt Rate > 60.0 mL/min (>60); Globulin 3.3 g/dL (1.7-4.1); Glucose 102 mg/dL (80-110); HEMOLYSIS < 15 (0-50); Sodium 137 mmol/L (137-145)
[2021-09-02] VITALS: BP 167/73; PULSE 72; O2SAT 98
[2021-09-02 00:05] LABS: Troponin I 0.035 ng/mL (0.01-0.034)
[2021-09-02] MEDS: AMLODIPINE 5 MG TABLET 10 MG PO (00:15)
[2021-09-02 00:24] VITALS: BP 167/73; PULSE 72; RESP 20; O2SAT 97
[2021-09-02 00:30] VITALS: BP 190/81; PULSE 70; O2SAT 97
[2021-09-02 01:00] VITALS: BP 167/72; PULSE 77; O2SAT 97
[2021-09-02 01:30] VITALS: BP 145/65; PULSE 74; O2SAT 97
[2021-09-02 02:00] VITALS: PULSE 75; O2SAT 98
== END 2021-09-02 02:15 | disposition home or self-care (01) ==
PROVIDERS: Emergency Provider Emergency Medicine; PCP Family Medicine
DX: I10 Essential (primary) hypertension (principal); Z87.891 Personal history of nicotine dependence
CPT/HCPCS: 36415; 70450; 70496; 70498; 80053; 81003; 81015; 82550; 82553; 82948; 84484; 85025; 93005; 99283; 99284; Q9967

== ENCOUNTER → 2021-09-11 12:21 | Outpatient (CLI) | payer MEDICARE, OTHER, SELFPAY ==
--- NOTE | 2021-09-11 12:24 | DI.RAD.S_ITS ---
PROCEDURE: FL UPPER GI W AIR INDICATIONS: Dysphagia, unspecified COMPARISON: [facility], CT, CT HEAD/BRAIN WO CON, 09/01/2021, 23:26. FINDINGS: KUB: Preprocedural business development intern film demonstrates a normal bowel gas pattern. No suspicious abdominal calcifications. Visualized solid organ contours appear normal. Bony structures appear unremarkable. Esophagus: Esophageal mucosa is normal on air-contrast views. Mild esophageal dysmotility. No strictures, extrinsic mass effects, or diverticula. Small slightly hiatal hernia. There is moderate elicited gastroesophageal reflux. There is normal transit of a calibrated barium tablet through the esophagus. Stomach: The stomach is normally distensible, with normal rugal fold thickness. No mucosal masses or ulcers. Pylorus and duodenal bulb appear normal in morphology. Duodenal folds are normal in thickness as well. IMPRESSION: 1. Mild esophageal dysmotility. 2. Small hiatal hernia. 3. Moderate gastroesophageal reflux. Dictated by: Elke Puentes M.D. on 09/12/2021 at 9:36 Approved by: Elke Puentes M.D. on 09/12/2021 at 9:38
== END ==
PROVIDERS: PCP Family Medicine; Referring Provider Family Medicine; Visit Provider Family Medicine
DX: R13.10 Dysphagia, unspecified (principal); K22.4 Dyskinesia of esophagus; K44.9 Diaphragmatic hernia without obstruction or gangrene; K21.9 Gastro-esophageal reflux disease without esophagitis
CPT/HCPCS: 74246

== ENCOUNTER → 2021-11-12 12:03 | Outpatient (CLI) | payer MEDICARE, OTHER, SELFPAY ==
[2021-11-12 13:42] LABS: COVID19 -Nasal RAPID Negative (Negative)
== END ==
PROVIDERS: PCP Family Medicine; Visit Provider Specialist
DX: Z01.812 Encounter for preprocedural laboratory examination (principal); Z20.822 Contact with and (suspected) exposure to COVID-19
CPT/HCPCS: 87635

== ENCOUNTER 2021-11-13 07:29 | Day surgery (SDC) | payer MEDICARE, OTHER, SELFPAY ==
[2021-11-11 14:52] VITALS: BMI 19.3
[2021-11-13] VITALS (8 sets, daily range): BP systolic 114–176; BP diastolic 56–88; PULSE 60–68; RESP 12–16; TEMP 36.2–36.8; O2SAT 96–99; BMI 19.3
[2021-11-13] MEDS: ACETAMINOPHEN 325 MG TABLET 975 MG PO ×2 (08:35→09:08)
[2021-11-13] MEDS: LACTATED RINGERS 1,000 ML 42 ML IV (08:48)
--- NOTE | 2021-11-13 08:51 | PM.PREOP ---
Pre-operative Note COVID-19 COVID-19 status: Negative Result date/Date tested (Pos, Neg/Pending): 11/12/21 Criteria for continued procedure: Expected advancement of disease process Interval Note History & Physical reviewed/Exam performed by Physician: Yes Changes to H&P: No
[2021-11-13] MEDS: CLINDAMYCIN 900 MG/50 ML PIGGYBACK 50 MG IV (09:00)
[2021-11-13] MEDS: BUPIVACAINE 0.5% (PF) 30 ML, EPINEPHrine 0.15 MG INJ (09:15)
--- NOTE | 2021-11-13 09:18 | SUR.OPER ---
Lithotomy on padded OR bed, head on pillow, arms secured on padded arm boards at <90 degrees abduction. Legs secured in padded yellow fins stirrups.
--- NOTE | 2021-11-13 09:45 | PM.OP.1 ---
Procedure & Clinicians Procedure: Incision and drainage of vulvar abscess and removal of vulvar inclusion cysts Same procedure as scheduled: Yes Indications: Large vulvar abscess not responsive to outpatient treatment. Multiple large vulvar inclusion cysts. Surgeon: Lizabeth Pollard Click Yes if Unassisted: Yes Anesthesia Type: General Operative Notes Findings: 6 cm right vulvar abscess. Multiple labial majora inclusion cysts on both the right and left. Closure Type: not applicable Specimen(s): other (Abscess cultures) Estimated Blood Loss (mL): 5 Blood products transfused: none Procedure in detail: Patient was brought to the operating room where she underwent general anesthesia. She was placed in low Yellofin stirrups and prepped and draped in the usual sterile fashion. 900 mg of clindamycin were in IV prior to beginning of the case. A check system reviewed with staff in the room prior to beginning the case. The area of the right vulvar abscess was injected with 0.5% Marcaine with epinephrine. An incision was made over the abscess. Cultures were taken. The abscess cavity was probed with a Rina clamp to break up any scar tissue. The cavity was irrigated with about 100 cc of saline. The cavity was packed with gauze packing. The areas of the multiple inclusion cysts were injected with Marcaine with epinephrine. Incisions were made in the skin of each of the inclusion cyst. The contents were removed and the capsules were removed with blunt and sharp dissection. Adequate hemostasis noted. The patient went to the recovery room in good condition. Counts of instruments and sponges were correct. Complications: none Post-operative Condition: stable Disposition: same day surgery Plan for aftercare: Home when awake and stable. Follow-up Q 2 days for packing removal and replacement
== END 2021-11-13 10:26 | disposition home or self-care (01) ==
PROVIDERS: PCP Family Medicine; Referring Provider Specialist; Visit Provider Specialist
PROC: (CPT 56405; principal; 2021-11-13 09:00)
DX: N76.4 Abscess of vulva (principal); N90.7 Vulvar cyst
CPT/HCPCS: 56405; 11420; 11421; 87070; 87205; J0171; J1100; J1885; J2405; J2704

== ENCOUNTER → 2022-02-24 12:29 | Outpatient (CLI) | payer MEDICARE, OTHER, SELFPAY ==
--- NOTE | 2022-02-24 | DI.RAD.S_ITS ---
PROCEDURE: XR ACUTE ABDOMEN SERIES INDICATIONS: Unspecified abdominal pain TECHNIQUE: One view chest and two views of the abdomen were acquired. COMPARISON: None. FINDINGS: Surgical changes and devices: There is prior right hip arthroplasty.. Chest: Lungs are clear. Chronic emphysematous changes are seen. Heart size is normal. No pleural effusions. No pneumoperitoneum. Abdomen: Bowel gas pattern is nonobstructive. Fecal stasis throughout the colon is seen. No gross pneumoperitoneum. No suspicious calcifications. Visualized solid organ contours appear normal. Bones: No suspicious bony lesions. IMPRESSION: Mild constipation. No gross free air. No acute cardiopulmonary pathology. No abnormal renal calcifications. Dictated by: Javon Goyal M.D. on 02/24/2022 at 14:51 Approved by: Javon Goyal M.D. on 02/24/2022 at 14:52
== END ==
PROVIDERS: PCP Family Medicine; Referring Provider Family Medicine; Visit Provider Family Medicine
DX: K59.00 Constipation, unspecified (principal); R10.9 Unspecified abdominal pain
CPT/HCPCS: 74022

== ENCOUNTER 2022-03-01 15:23 | Emergency (ER) | payer MEDICARE, OTHER, SELFPAY ==
--- NOTE | 2022-03-01 15:36 | DI.RAD.S_ITS ---
PROCEDURE: XR SOFT TISSUE NECK INDICATIONS: poss fb TECHNIQUE: 2 views of the neck were acquired. COMPARISON: None. FINDINGS: Airway: The airway appears patent. Soft tissues: Prevertebral soft tissues are normal in thickness. The epiglottis and aryepiglottic folds appear normal. No soft tissue gas. Bones: No suspicious bony lesions. Visualized cervical spine is normally aligned. Degenerative facet arthropathy small anterior osteophytes noted in the cervical spine IMPRESSION: No radiopaque foreign body. Degenerative cervical spine Approved by: Cory Orr M.D. on 03/01/2022 at 15:05
[2022-03-01 20:21] VITALS: BP 179/72; PULSE 73; O2SAT 95
--- NOTE | 2022-03-01 21:36 | ED.GENADULT ---
HPI - General Adult General Chief complaint: Abdominal Pain Stated complaint: FOREIGN OBJECT LODGED IN THROAT Time Seen by Provider: 03/01/22 21:27 Source: patient and family Mode of arrival: Ambulatory History of Present Illness HPI narrative: 81-year-old woman with history of hypothyroidism, hypertension with a history of difficulty swallowing pills and feeling things are caught in her throat presents complaining of something caught in the left side of her throat. She states that when she puts her finger down the left side of her throat she can feel something caught with her finger tip. She clearly does not have a strong gag reflex. She is still able to swallow and manage her secretions. She complains that the sensation is quite irritating. Related Data Home Medications Medication Instructions Recorded Confirmed calcium carbonate 500 mg-vitamin 1 tab PO BID ##0 12/02/16 11/17/21 D3 5 mcg (200 unit) tablet (Oyster Shell Calcium-Vitamin D3) fluticasone propionate 50 1 spray intranasal QDAYP PRN Sinus 12/02/16 11/17/21 mcg/actuation nasal congestion ##0 spray,suspension (Flonase Allergy Relief) levothyroxine 50 mcg tablet 50 mcg PO DAILY 08/12/21 11/17/21 (Synthroid) losartan 100 mg tablet (Cozaar) 100 mg PO DAILY 08/12/21 11/17/21 amlodipine 5 mg tablet 2.5 mg DAILY 11/13/21 11/17/21 omeprazole 20 mg capsule,delayed 20 mg DAILY 11/13/21 11/17/21 release simvastatin 10 mg tablet 10 mg DAILY 11/13/21 11/17/21 Allergies Allergy/AdvReac Type Severity Reaction Status Date / Time enoxaparin [From LOVENOX] Allergy Severe ITCHING Verified 11/17/21 11:44 adhesive tape [ADHESIVE TAPE] Allergy Mild ERYTHEMA Verified 11/17/21 11:44 AT SITE Review of Systems Review of Systems Narrative: Remainder of complete review of systems is otherwise unremarkable except for that included in the HPI. Patient History Medical History Allergies Chicken pox (~194) Colon polyps (~2015) Endometriosis (~1963) Fibroids (~1963) Hemorrhoid (~1979) Hypothyroidism (~1984) Measles (~1948) Osteopenia (~2014) Ovarian cyst (~1963) Painful menstrual periods (~1955) Rosacea (~2019) Thyroid nodule (~1985) Surgical History Anesthesia History of foot surgery (~1993) History of hysterectomy (~1974) History of left knee replacement (~2016) History of nasal surgery (~1984) History of right hip replacement (~2009) History of surgical removal of lesion History of tonsillectomy and adenoidectomy (~1950) Hx of removal of ovary (~1963) Perianal abscess (~1982) Family History Sister Macular degeneration Social History household members: spouse Smoking Status: Former smoker alcohol intake: current Smoking Status: Former smoker alcohol intake frequency: holidays/special occasions only Substance Use Type: does not use Exam Initial Vital Signs Initial Vital Signs: Vital Signs Pulse Rate 73 03/01/22 20:21 Blood Pressure 179/72 H 03/01/22 20:21 Pulse Oximetry 95 03/01/22 20:21 General: Healthy appearing, in no acute distress. Able to give a complete and coherent history. Well-nourished well-developed HEENT: Moist mucous membranes, normal sclera with reactive pupils, Neck: supple Respiratory: Lungs are clear to auscultation, no wheezing no rales no rhonchi. Full and symmetrical air movement Cardiac: Regular rate and rhythm no murmurs no bruits Skin: Warm and dry, no rashes Neurologic: Grossly neurologically intact with no obvious asymmetries or abnormalities Extremities: No trauma, well perfused Psych: Cooperative, appropriate insight and affect Using Cetacaine spray her posterior oropharynx was anesthetized. Using the glide scope, posterior pharynx and area epiglottic folds are examined with no obvious foreign body appreciated. She tolerated this evaluation well Course Orders Ordered: Discontinued Medications Benzocaine/Butamben/Tetracaine HCl (Tetracaine/Benzocaine/Butamben (Cetacaine) Bottle) 1 spray TOP NOW ONE Stop: 03/01/22 21:41 Last Admin: 03/01/22 22:11 Dose: 1 spray Documented By: KP Vital Signs Vital signs: Vital Signs - 8 hr 03/01/22 23:12 03/01/22 23:13 03/01/22 23:14 Pulse Rate 69 69 Blood Pressure Pulse Oximetry 95 97 97 03/01/22 23:16 Pulse Rate Blood Pressure 185/80 H Pulse Oximetry Medical Decision Making Medical Records Medical records narrative: 81-year-old woman presents complaining she has a foreign body stuck in her throat that she can feel with her finger left side. No obvious abnormality on direct visualization nor with extended visualization using a glide scope. Care is reviewed with Dr. Lopez, ENT physician on-call this evening. As she is not in extremis, able to swallow liquids managing her own secretions she is safe for discharge home at this time. She will need to follow-up with ENT in the morning. She does report that she had been heating [place] acute hot dogs and so it is entirely possible that she has some small metal bursal from the wire clean or used on the grill. At this point there are no obvious abnormalities on x-ray of the neck, obvious physical exam or palpation. Reassurance is given and encouraged her to follow-up with ENT in the morning. She is safe for discharge home Discharge Plan Departure Patient Disposition: Home Clinical Impression: Foreign body in throat Qualifiers: Encounter type: initial encounter Qualified Code(s): T17.208A - Unspecified foreign body in pharynx causing other injury, initial encounter Activity Restrictions/Additional Instructions: Thank you for coming in today On direct visual exam and using the glide scope I am not able to see any obvious, large, obstructing foreign body that needs to be immediately removed. The x-ray of your neck does not show any obvious foreign bodies. You are able to swallow and there is no difficulty with breathing which means that it is safe for you to go home this evening and follow-up with the ear nose and throat physician tomorrow. Please contact [facility] ear nose and throat at [phone]. Please explain that you are seen in the emergency department last night and the ER doctor spoke with Dr. Lopez. Dr. Lopez directed you to contact the office to be seen Wednesday morning by one of the ear nose and throat doctors to look with more advanced stools and see if we can find the foreign body that you are sensing. If you feel that you are worsening or have new findings, please return this evening Prescriptions: No Action calcium carbonate-vitamin D3 [Oyster Shell Calcium-Vit D3] 500 MG/200 IU tablet 1 tab PO BID Qty: 0 fluticasone propionate [Flonase Allergy Relief] 9.9 ML spray,suspension 1 spray Intranasal QDAYP PRN (Reason: Sinus congestion) Qty: 0 losartan [Cozaar] 100 mg tablet 100 mg PO DAILY levothyroxine [Synthroid] 50 mcg tablet 50 mcg PO DAILY simvastatin 10 mg tablet 10 mg DAILY amlodipine 5 mg tablet 2.5 mg DAILY omeprazole 20 mg capsule,delayed release(DR/EC) 20 mg DAILY Referrals: Rhona Salomon MD [Primary Care Provider] - Visit Report Forms: Patient Portal/API
[2022-03-01] MEDS: TETRACAINE/BENZOCAINE/BUTAMBEN (CETACAINE) BOTTLE 1 SPRAY TOP (22:11)
[2022-03-01 23:12] VITALS: PULSE 69; O2SAT 95
[2022-03-01 23:13] VITALS: PULSE 69; O2SAT 97
[2022-03-01 23:14] VITALS: O2SAT 97
[2022-03-01 23:16] VITALS: BP 185/80
== END 2022-03-01 23:19 | disposition home or self-care (01) ==
PROVIDERS: Emergency Provider Emergency Medicine; PCP Family Medicine
DX: T17.208A Unspecified foreign body in pharynx causing other injury, initial encounter (principal)
CPT/HCPCS: 70360; 99282; 99283

== ENCOUNTER → 2022-03-03 12:03 | Outpatient (CLI) | payer MEDICARE, OTHER, SELFPAY ==
--- NOTE | 2022-03-03 12:05 | DI.CT.S_ITS ---
PROCEDURE: CT ABDOMEN PELVIS W CON INDICATIONS: Unspecified abdominal pain TECHNIQUE: After the administration of oral and IV contrast, axial sections were acquired from the lung bases to the pubic symphysis. Coronal and sagittal reformats were performed. For radiation dose reduction, the following was used: automated exposure control, adjustment of mA and/or kV according to patient size. COMPARISON: [facility], CT, ABDOMEN/PELVIS WITH CONTRAST, 12/24/2014, 8:32. [facility], CR, XR ACUTE ABDOMEN SERIES, 02/24/2022, 13:02. FINDINGS: Image quality: There is artifact associated with the metallic hardware. Lung bases: Unremarkable. Heart: No significant findings. ABDOMEN: Liver: A stable liver cyst or hemangioma can be seen, as on series 2, image 10. The liver is normal in size and demonstrates no suspicious lesions. Gallbladder: Unremarkable. Biliary ducts: Unremarkable. Pancreas: Unremarkable. Spleen: Unremarkable. Adrenal Glands: Unremarkable. Kidneys and Ureters: Unremarkable. Stomach and Bowel: Stomach, small bowel loops, and colon are unremarkable. Mild sigmoid diverticulosis is seen, without findings of active diverticulitis. Peritoneum: No abnormal intraperitoneal fluid. No free air. Ventral Wall: No hernia. Abdominal Nodes: No retroperitoneal or mesenteric adenopathy by size criteria. Vessels: Aorta and inferior vena cava are normal in size. Atherosclerotic calcification is noted. PELVIS: Pelvic Organs: This patient is status post hysterectomy. No adnexal masses are seen. Bladder: Unremarkable. Pelvic Nodes: No enlarged lymph nodes. Miscellaneous: No inguinal hernias are seen. Bones: Right hip arthroplasty hardware is seen. Moderate generalized bony degenerative changes are seen. IMPRESSION: No imaging explanation is found for this patient's presenting symptoms. Incidental note is made of: Stable liver cyst or hemangioma, considered to be benign Hysterectomy Right hip arthroplasty hardware Dictated by: Bobby Sanders M.D. on 03/03/2022 at 15:26 Approved by: Bobby Sanders M.D. on 03/03/2022 at 15:28
== END ==
PROVIDERS: PCP Family Medicine; Referring Provider Family Medicine; Visit Provider Family Medicine
DX: R10.9 Unspecified abdominal pain (principal); K57.30 Diverticulosis of large intestine without perforation or abscess without bleeding; Z90.710 Acquired absence of both cervix and uterus; Z96.641 Presence of right artificial hip joint
CPT/HCPCS: 74177; Q9967

== ENCOUNTER → 2022-04-08 08:41 | Outpatient (CLI) | payer MEDICARE, OTHER, SELFPAY ==
--- NOTE | 2022-04-08 | DI.RAD.S_ITS ---
PROCEDURE: FL BARIUM SWALLOW W SPEECH INDICATIONS: Dysphagia, pharyngoesophageal phase COMPARISON: None. TECHNIQUE: Examination was conducted in conjunction with speech pathology per standard protocol. In the lateral projection, filming was performed of the patient swallowing. AP projection filming may also be performed with patient swallowing. COMPARISON: FINDINGS: Function: The oral preparatory phase appears normal, with proper containment. The subsequent oral propulsive phase, pharyngeal phase, and esophageal phase of swallowing also appear normal with all proffered substances. No laryngotracheal penetration or aspiration. No pathologic vallecular pooling. Morphology: No cricopharyngeal bar is identified. No cervical esophageal webs. No Zenker's diverticulum. No strictures. IMPRESSION: No evidence of aspiration or penetration. Please see speech pathology report for complete findings. Dictated by: Gabe Melendez M.D. on 04/08/2022 at 16:36 Approved by: Gabe Melendez M.D. on 04/08/2022 at 16:38
--- NOTE | 2022-04-08 16:37 | ST.SWALLOW ---
Visit Care Team Role Provider Type Rhona Salomon MD Primary Care Provider Physician Specialty: Family Practice Address: [address] [place] [address], [address], [place], [address] Email: [email or web address] Bakari Cummings MD Attending Provider Physician Referring Provider Specialty: Ear, Nose, Throat Address: [address] [place] [address], [id number] Email: [email or web address] ST Modified Barium Swallow Study BL[employer]ER Modified Barium Swallow Study Start: 04/08/22 11:12 Freq: Status: Active Protocol: Document 04/08/22 11:13 LNK (Rec: 04/08/22 11:33 LNK [id number]) Modified Barium Swallow Study Total Time Visit Start Time 09:30 Visit Stop Time 10:10 Total Visit Minutes 40 Referral Referring Physician YOLA Huston Reason for Referral dysphagia Setting Setting Outpatient Care Patient Information Identification Type Name,Date of Patient History Pt was seen for a Modified Barium Swallow Study (MBSS) at the referral of Dr. Cummings, ENT. According to the pt she has been experiencing a build up of phlegm in her throat and has been having difficulty with swallowing. Dr. Cummings prescribed a nasal inhalant that pt reports has helped with reducing th amount of phlegm in her throat. Relative to swallowing, pt reported no cough or choke with eating, however she reported that when she swallows, she gets a sensation that the food gets stuck ( pointing to lower throat area) . She reported that once she felt a pill get stuck. She put her finger down her throat and was able to feel the pill . Since that time she has taken pills with applesauce, which has helped them go down better. Pt had an esophagram in September 2021 which indicated esophageal dysmotility, a small hiatal hernia and reflux . Subjective Observations Pt was seated in the fluuoroscopy chair. Directions and procedures were described for the pt. Pt indicated she understood and agreed to proceed. Patient Positioning Position View Lat-A/P Imaging Lateral View Textures Administered Trials Presented Thin Liquid via Spoon,Thin Liquid via Cup,[place] Liquid via Cup,Pudding Thick Liquid via Spoon,Regular Textures, Barium Tablet Oral Phase Source: MBSIMP (TM) (C) Bolus Specific Scoring Grid Lip Closure No Impairment (WNL) Tongue Control During Bolus Hold No Impairment (WNL) Bolus Prep/Mastication No Impairment (WNL) Bolus Transport/Lingual Motion No Impairment (WNL) A/P Lingual Propulsion Delay No Oral Residue No Impairment (WNL) Nasal Regurgitation No Additional Oral Phase Observations Diadochokinesis WNL. OME was WNL for form and function, Oral Phase of swallowing: Pt demonstrated good bolus formation and control, A-P transition of the bolus and good mastication. No oral residue was noted post swallow . Oral phase was determined to be WNL Pharyngeal Phase Source: MBSIMP (TM) (C) Bolus Specific Scoring Grid Delayed Initiation of Pharyngeal Swallow No Soft Palate Elevation No Impairment (WNL) Tongue Base Strength/Range of Motion Mild Impairment Residue Along the Tongue Base Trace to minimal Clearance of Residue Along Tongue Base Minimal Impairment Laryngeal Elevation Minimal Impairment Anterior Hyoid Movement Minimal Impairment Epiglottic Range of Motion Minimal Impairment Vallecular Residue Yes Clearance of Vallecular Residue Mild Impairment Laryngeal Vestibular Closure Minimal Impairment Pharyngeal Stripping Wave Minimal Impairment Pharyngeal Contraction WFL Upper Esophageal Sphincter Opening Severe Impairment Residue in the Pyriform Sinuses Yes Clearance of Residue in the Pyriform Mild Impairment Sinuses Esophageal Clearance Upright Position Minimal Impairment Additional Pharyngeal Phase Observations Pt demonstrated mild tongue base weakness, which impacted hyolaryngeal elevation and forward movement. Pt's epiglottic fully inverted with adequate seal of the laryngeal vestibule. No laryngeal penetration nor laryngotracheal aspiration were observed. Osteophytes from C3-C6 were observed to alter and narrow the pharyngoesophageal area; altering the bolus flow in a wave-like pattern. There was no impediment of the bolus noted. Pharyngeal pooling was observed in both the valeculla and the pyriform sinuses. Pt had difficulty with clearing pharyngeal pooling. Several swallows were required to clear the pharynx . The UES appeared to have limited extension and duration of its opening. In the AP view, the pt swallowed a barium tablet, which did not initially pass throughout the UES. Thick liquid was provided to the pt, which eased the tablet through the UES. The pt reported that she needs to use applesauce in order to swallow pills; otherwise the pills get stuck in her throat. A/P View Textures Administered Trials Presented Barium Tablet A/P View Observations Pharyngeal Contraction WFL Vocal Fold Function Good Esophageal Function WFL Esophageal Clearance Upright Position Mild Impairment Additional Observations Esophageal phase of the swallow was screened. When pt swallowed the barium table, it did not pass through the UES. An additional swallow of nectar thick liquid was needed to provide additional bolus weight, assisting in UES opening. The tablet then passed through the esophagus and into the stomach without difficulty. Mild esophageal dysmotility observed. Referral to GI is recommended. Clinical Impressions Dysphagia Type pharyngoesophageal Patient Appropriate for Therapy No Recommendations Diet Medication Recommendation Whole in Carrier Comments No change in pt's diet recommended Aspiration Precautions Recommended Precautions Alternate Liquids/Solids, Double Swallow Additional Precautions Reflux precautions discussed with pt. Treatment Plan Recommended Referrals GI Consult
== END ==
PROVIDERS: PCP Family Medicine; Referring Provider Otolaryngology; Visit Provider Otolaryngology
DX: R13.14 Dysphagia, pharyngoesophageal phase (principal)
CPT/HCPCS: 74230; 92611

== ENCOUNTER → 2022-04-20 08:57 | Outpatient (CLI) | payer MEDICARE, OTHER, SELFPAY ==
--- NOTE | 2022-04-20 | DI.ECHO.S_ITS ---
[facility]---------[facility] +---------+ : : [address] [place] : : : : [id number] : : : : Phone: [phone]---------+ Echocardiogram Report + + :Name: HERIBERTO ENRIQUEZ Study Date: 04/20/2022 Height: 65.5 in: :[facility] ReadingLocation: Weight: 113 lb : : Gender: Female BSA: 1.6 m2 : :: 1940 Age: 81 yrs BP: 166/86 mmHg: :Reason For Study: DIZZINESS AND GIDDINESS : :Ordering Physician: SONAL, : :LAUREN Performed By: Blanquita Echevarria : :Referring: LAUREN PRUITT : + + Interpretation Summary The patient was in sinus rhythm with heart rates between 69-81 bpm during the exam. The left ventricle is normal in size and wall thickness. The ejection fraction is estimated to be 50-55%. Diastolic parameters suggest a pseudonormalization pattern, consistent with probable elevated filling pressures. The left atrium is moderately dilated. There is mild to moderate mitral regurgitation. There is mild to moderate tricuspid regurgitation. The right ventricular systolic pressure is estimated to be at least 30 mmHg based on an estimated right atrial pressure of 3 mm Hg. Echodensity suggestive of chordal redundency vs chordal rupture without valvular leaflet prolapse. No prior study for comparison. Procedure: A two-dimensional transthoracic echocardiogram with color flow and Doppler was performed. The study quality was technically adequate. There is no prior echocardiogram noted for this patient. The patient was in sinus rhythm with heart rates between 69-81 bpm during the exam. Left Ventricle: The left ventricle is normal in size and wall thickness. The ejection fraction is estimated to be 50-55%. Diastolic parameters suggest a pseudonormalization pattern, consistent with probable elevated filling pressures. Right Ventricle: The right ventricle is normal in size and function. Atria: The left atrium is moderately dilated. Right atrial size is normal. There is no Doppler evidence for an interatrial shunt. Mitral Valve: The mitral valve leaflets appear mildly thickened, but open well. There is mild mitral annular calcification. There is mild to moderate mitral regurgitation. Aortic Valve: The aortic valve is trileaflet. The aortic valve opens well. There is no aortic valve stenosis. There is trace aortic regurgitation. Tricuspid Valve: The tricuspid valve is normal in structure and function. Echodensity suggestive of chordal redundency vs chordal rupture without valvular leaflet prolapse. There is mild to moderate tricuspid regurgitation. The right ventricular systolic pressure is estimated to be at least 30 mmHg based on an estimated right atrial pressure of 3 mm Hg. Pulmonic Valve: The pulmonic valve is not well visualized. There is no pulmonic valvular regurgitation. Great Vessels: The aortic root is normal size. The ascending aorta could not be visualized. The IVC is of normal diameter and collapses greater than 50% with a sniff. This suggests a low right atrial pressure of 3 mm Hg. Pericardium/ Pleura There is no pericardial effusion. There is no pleural effusion. MMode/2D Measurements & Calculations LVIDd: 5.3 cm LVOT diam: 1.9 cm LVIDs: 3.9 cm Ao root diam: 2.9 cm FS: 25.7 % IVSd: 0.85 cm LVPWd: 0.96 cm LV mcdonough. diameter/BSA (cm/m^2): 3.4 LV sys. diameter/BSA (cm/m^2): 2.5 LA A2 area: 21.2 cm2 RA long axis: 4.5 cm LA A4 area: 18.1 cm2 RA area: 13.9 cm2 LA length (vol): 4.7 cm RA vol: 36.7 ml LA vol: 69.6 ml RA : 23.5 ml/m2 LA vol index: 44.6 ml/m2 IVC diam: 0.81 cm RVD1 (basal): 3.0 cm RVD2 (mid): 2.6 cm TAPSE: 1.8 cm Doppler Measurements & Calculations Ao V2 max: 123.4 cm/sec LVOT Max Rajat: 86.3 cm/sec Ao V2 mean: 85.9 cm/sec LV V1 max P.0 mmHg Ao max P.1 mmHg LV V1 VTI: 23.1 cm Ao mean P.4 mmHg RADHA(I,D): 2.1 cm2 Ao V2 VTI: 31.1 cm RADHA(V,D): 2.0 cm2 sev ratio: 0.74 RADHA indexed to BSA (cm^2/m^2): 1.3 MV E max rajat: 91.3 cm/sec TR max rajat: 260.4 cm/sec MV A max rajat: 110.6 cm/sec TR max P.1 mmHg MV E/A: 0.83 PA V2 max: 108.8 cm/sec Med Peak E' Rajat: 7.1 cm/sec PA V2 mean: 76.8 cm/sec E/E' med: 12.9 PA mean P.7 mmHg Lat Peak E' Rajat: 9.2 cm/sec PA pr(Accel): 25.9 mmHg E/E' lat: 9.9 E/e' average: 11.4 MV dec time: 0.19 sec SV(LVOT): 65.3 ml Reading Physician:JENNIFER
== END ==
PROVIDERS: PCP Family Medicine; Referring Provider Family Medicine; Visit Provider Family Medicine
DX: I08.1 Rheumatic disorders of both mitral and tricuspid valves (principal); R42 Dizziness and giddiness; R53.83 Other fatigue
CPT/HCPCS: 93306

== ENCOUNTER → 2022-11-17 09:06 | Outpatient (CLI) | payer MEDICARE, OTHER, SELFPAY ==
--- NOTE | 2022-11-17 | DI.ECHO.S_ITS ---
[facility] +---------+ [facility] +---------+ : : [address] : : : : [place] : : : : [phone] : : : : Phone: [phone] +---------+ Echocardiogram Report + + :Name: HERIBERTO ENRIQUEZ Study Date: 11/17/2022 Height: 65 in : :[facility] ReadingLocation: Weight: 121 lb : : Gender: Female BSA: 1.6 m2 : :: 1940 Age: 82 yrs BP: 165/73 mmHg: :Reason For Study: TRICUSPID INSUFFICIENCY : :Ordering Physician: SONAL, : :LAUREN Performed By: Blanquita Echevarria : :Referring: LAUREN PRUITT : + + Interpretation Summary The ejection fraction is estimated to be 50-55%. Diastolic function could not be accurately assessed due to contradictory data. The left atrium is moderately dilated. The right ventricle is normal in size and function. There is moderate mitral regurgitation. There is moderate tricuspid regurgitation. There is a redundant cord attached to the tricuspid valve without evidence of flail. The right ventricular systolic pressure is estimated to be at least 27 mmHg based on an estimated right atrial pressure of 8 mm Hg. Compared to the prior study dated 04/20/2022, there is a slight increase in the mitral and tricuspid regurgitation. Procedure: A two-dimensional transthoracic echocardiogram with color flow and Doppler was performed. The study quality was technically adequate. Comparison is made with the echocardiogram of 04/20/2022. The patient was in sinus rhythm with heart rates between 61-70 bpm during the exam. Left Ventricle: The left ventricle is normal in size and wall thickness. The ejection fraction is estimated to be 50-55%. Diastolic function could not be accurately assessed due to contradictory data. Right Ventricle: The right ventricle is normal in size and function. Atria: The left atrium is moderately dilated. Right atrial size is normal. There is no Doppler evidence for an interatrial shunt. Mitral Valve: There is mild to moderate mitral annular calcification. The mitral valve leaflets appear mildly thickened, but open well. There is moderate mitral regurgitation. Aortic Valve: The aortic valve is trileaflet. The aortic valve opens well. There is no aortic valve stenosis. No aortic regurgitation is present. Tricuspid Valve: The tricuspid valve leaflets are thin and pliable. There is a redundant cord attached to the tricuspid valve without evidence of flail. There is moderate tricuspid regurgitation. The right ventricular systolic pressure is estimated to be at least 27 mmHg based on an estimated right atrial pressure of 8 mm Hg. Pulmonic Valve: The pulmonic valve leaflets are thin and pliable; valve motion is normal. There is trace pulmonic regurgitation. Great Vessels: The aortic root is normal size. The ascending aorta could not be visualized. The IVC is of normal diameter and collapses greater than 50% with a sniff. This suggests a low right atrial pressure of 3 mm Hg. Pericardium/ Pleura There is no pericardial effusion. There is no pleural effusion. MMode/2D Measurements & Calculations LVIDd: 5.0 cm LVOT diam: 2.0 cm LVIDs: 3.7 cm Ao root diam: 3.0 cm FS: 25.8 % EPSS: 0.36 cm IVSd: 0.61 cm LVPWd: 0.74 cm LV mcdonough. diameter/BSA (cm/m^2): 3.2 LV sys. diameter/BSA (cm/m^2): 2.3 LA A2 area: 19.5 cm2 RA long axis: 4.4 cm LA A4 area: 17.7 cm2 RA area: 12.7 cm2 LA length (vol): 4.2 cm RA vol: 31.0 ml LA vol: 69.2 ml RA : 19.4 ml/m2 LA vol index: 43.3 ml/m2 IVC diam: 1.8 cm RVD1 (basal): 2.9 cm RVD2 (mid): 2.5 cm TAPSE: 1.8 cm Doppler Measurements & Calculations Ao V2 max: 130.6 cm/sec LVOT Max Rajat: 88.3 cm/sec Ao V2 mean: 94.0 cm/sec LV V1 max P.1 mmHg Ao max P.8 mmHg LV V1 VTI: 21.2 cm Ao mean P.9 mmHg RADHA(I,D): 2.2 cm2 Ao V2 VTI: 30.8 cm RADHA(V,D): 2.2 cm2 sev ratio: 0.69 RADHA indexed to BSA (cm^2/m^2): 1.4 MV E max rajat: 80.1 cm/sec TR max rajat: 246.0 cm/sec MV A max rajat: 89.2 cm/sec TR max P.2 mmHg MV E/A: 0.90 PA V2 max: 86.6 cm/sec Med Peak E' Rajat: 6.5 cm/sec PA V2 mean: 63.1 cm/sec E/E' med: 12.3 PA mean P.8 mmHg Lat Peak E' Rajat: 8.0 cm/sec PA pr(Accel): 39.6 mmHg E/E' lat: 10.0 E/e' average: 11.1 MV dec time: 0.17 sec SV(LVOT): 67.5 ml Reading Physician:11:10 AM
--- NOTE | 2022-11-17 10:23 | DI.DEXA.S_ITS ---
Bone Density Report Name: HERIBERTO ENRIQUEZ Age: 82 Sex: Female Ethnicity: White Date of : 1940 Indication: postmenopausal; screening for osteoporosis; Referring Provider: LAUREN PRUITT Study: Bone densitometry was performed. Exam Date: November 17, 2022 Accession number: [id number] Bone Density: Region BMD T-score Z-score Classification AP Spine(L1-L4) 1.365 2.9 5.6 Normal Femoral Neck (Left) 0.645 -1.8 0.5 Osteopenia Total Hip (Left) 0.783 -1.3 0.8 Osteopenia Total Forearm (Left) 0.440 -2.6 0.4 Osteoporosis 1/3 Forearm (Left) 0.538 -2.6 0.5 Osteoporosis UD Forearm (Left) 0.319 -2.1 0.1 Osteopenia World Health Organization criteria for BMD impression classify patients as: Normal (T-score at or above -1.0), Osteopenia (T-score between -1.0 and -2.5), or Osteoporosis (T-score at or below -2.5). 10-year Fracture Risk(1): Major Osteoporotic Fracture 13% Hip Fracture 3.7% Reported Risk Factors: [place] (), Neck BMD=0.645, BMI=20.1 (1) FRAX(R) Version 3.08. Fracture probability calculated for an untreated patient. Fracture probability may be lower if the patient has received treatment. Previous Exams: -- Region Exam Age BMD T-score BMD Change BMD Change Date g/cm2 vs Baseline vs Previous -- AP Spine (L1-L4) 11/17/2022 82 1.365 2.9 -0.013 (-0.9%)# -0.013 (-0.9%)# 04/29/2020 79 1.378 3.0 Total Hip(Left) 11/17/2022 82 0.783 -1.3 -0.036 (-4.4%)# -0.036 (-4.4%)# 04/29/2020 79 0.819 -1.0 -- *Denotes significance at 95% confidence level, LSC for AP Spine = 0.022 g/cm2, LSC for Total Hip = 0.027 g/cm2 # Denotes dissimilar scan types or analysis methods Impression: The patient has low bone mass, based on the Left Femoral Neck T-score. The patient has an estimated ten-year risk of hip fracture of 3.7% and an estimated ten-year risk of major fracture of 13%, based on the WHO FRAX algorithm. No significant bone loss was observed. Discussion: BONE DENSITY IS LOW AT ONE OR MORE SKELETAL SITES. THE PATIENT'S BMD AND CLINICAL RISK FACTORS CONTRIBUTE TO THIS PATIENT'S INCREASED RISK OF FRACTURE. This patient's lowest T-score is low at one or more skeletal sites. It meets the World Health Organization's (WHO) criteria for ?low bone mass? (T-score between -1.0 and -2.5). The patient's 10-year risk of hip fracture as calculated by FRAX exceeds the threshold where pharmacological therapy is recommended by the National Osteoporosis Foundation (NOF). However, all treatment decisions require clinical judgment and consideration of individual patient factors, including patient preferences, comorbidities, previous drug use, risk factors not captured in the FRAX model (e.g., frailty, falls, vitamin D deficiency, increased bone turnover, interval significant decline in bone density) and possible under or overestimation of fracture risk by FRAX. The patient should follow a healthful lifestyle (good nutrition with adequate calcium and vitamin D, and appropriate weight-bearing exercise). Follow-Up: Consider a repeat BMD and Vertebral Fracture Assessment (VFA) exam in 2 years or sooner if medically necessary, to reassess this patient's status. Reported by: JONH NORTON MD on 11/17/2022 11:10:00 AM.
== END ==
PROVIDERS: PCP Family Medicine; Referring Provider Family Medicine; Visit Provider Family Medicine
DX: Z13.820 Encounter for screening for osteoporosis (principal); I08.1 Rheumatic disorders of both mitral and tricuspid valves; M85.852 Other specified disorders of bone density and structure, left thigh; Z78.0 Asymptomatic menopausal state; E03.9 Hypothyroidism, unspecified; Z92.23 Personal history of estrogen therapy; Z90.710 Acquired absence of both cervix and uterus
CPT/HCPCS: 77080; 93306

== ENCOUNTER 2023-06-05 16:04 | Emergency (ER) | payer MEDICARE, OTHER, SELFPAY ==
[2023-06-05] VITALS (9 sets, daily range): BP systolic 171–202; BP diastolic 73–85; PULSE 63–80; RESP 16; TEMP 36.8–37.3; O2SAT 97–99; BMI 19.4
[2023-06-05 16:41] LABS: Bacteria Urine None Seen; Culture Indicated Urine Cult Not Indicated; RBC Urine None Seen (0-5/HPF); Squamous Epithelial Cell Urine None Seen (0-5/HPF); WBC Urine None Seen (0-5/HPF)
--- NOTE | 2023-06-05 17:42 | DI.CT.S_ITS ---
PROCEDURE: CT HEAD/BRAIN WO CON INDICATIONS: Dizziness TECHNIQUE: Noncontrast 4.5 mm thick angled axial sections acquired from the foramen magnum to the vertex, with coronal and sagittal reformats. For radiation dose reduction, the following was used: automated exposure control, adjustment of mA and/or kV according to patient size. COMPARISON: [facility], MR, MR HEAD/BRAIN WO/W CON, 08/21/2021, 12:22. [facility], CT, CT HEAD/BRAIN WO CON, 08/15/2021, 17:02. [facility], CT, CT HEAD/BRAIN WO CON, 09/01/2021, 23:26. FINDINGS: Image quality: Excellent. CSF spaces: Basal cisterns are patent. No extra-axial fluid collections. The ventricles are symmetric in size and shape. Brain: No intracranial bleeds or masses. There is cerebral volume loss for age, with resultant ventricular and sulcal prominence. There are periventricular and deep white matter chronic small vessel ischemic changes. There is intracranial internal carotid artery atherosclerosis. Skull and face: Calvarium and visualized facial bones appear intact, without suspicious lesions. Sinuses: Visualized sinuses and mastoids are clear. Postoperative change the right maxillary sinus can be seen. IMPRESSION: Intracranial study within normal limits for age. If it would be helpful for clinical management decision making, please consider a dedicated, scheduled brain MRI for further evaluation (assuming that there is no contraindication). Dictated by: Bobby Sanders M.D. on 06/05/2023 at 17:23 Approved by: Bobby Sanders M.D. on 06/05/2023 at 17:26
[2023-06-05 18:18] LABS: Add Manual Diff / Slide Review NO; Basophils Absolute Auto 0 /uL (0-100); Basophils Percent Auto 0.5 % (0-2); Eosinophils Absolute Auto 100 /uL (0-450); Eosinophils Percent Auto 1.6 % (2-4); Hematocrit 40.3 % (36-46); Hemoglobin 13.6 g/dL (12.0-16.0); Lymphocytes Absolute Auto 1100 /uL (1100-4500); Mean Corpuscular HGB Conc 33.7 % (30-36); Mean Corpuscular Hemoglobin 30.1 PG (26-34); Mean Corpuscular Volume 89.2 fL (80-100); Monocytes Absolute Auto 400 /uL (0-900); Monocytes Percent Auto 6.1 % (3-14); Neutrophils Absolute Auto 4600 /uL (1500-7000); Neutrophils Percent Auto 73.8 % (50-75); Platelet Count 190 X10^3/uL (150-400); Red Blood Cell Count 4.52 X10^6/uL (4.0-5.2); Red Cell Distribution Width 14.1 % (11.6-14.8); White Blood Cell Count 6.3 X10^3/uL (4.5-11.0)
--- NOTE | 2023-06-05 18:32 | ED.DIZZY ---
HPI - Dizziness <Roseline Dumont PA-C - Last Filed: 06/06/23 11:01> General Chief Complaint: Urogenital-Female Stated Complaint: light headed/stuffy/frequent urination/incontinenc Time Seen by Provider: 06/05/23 17:06 Source: patient Mode of arrival: Ambulatory History of Present Illness HPI Narrative: 82-year-old female the history of hypertension, hypothyroid, anxiety, who presents for evaluation of 2 issues. For the last 3 days she is had increase in her nasal discharge. She says it is clear without cough, shortness of breath, chest pain, or abdominal pain. She does have occasional seasonal allergies and has been raking leaves lately. Associated with this nasal discharge have been a few intermittent episodes of dizziness that she localizes to the front of her head. She is not sure if they are exacerbated with head movement but she denies any sensation of the room spinning. The last episode was yesterday when she was driving the car. she had no visual changes, no associated headache, but it did concern her. It lasted only for a minute or 2 and she was able to get home okay. No associated nausea. She has never experienced this in the past. She has not started any new medications nor supplements, and reports only slight increase in her anxiety due to her 's recent stroke for which he is in a facility currently. The 2nd issue is 5 days of urinary urgency and frequency that is not associated with pain. She does not have a history of urinary tract infections. Does not describe an odor. She has had no fever. Related Data Home Medications Medication Instructions Recorded Confirmed calcium carbonate 500 mg-vitamin 1 tab PO BID ##0 12/02/16 11/17/21 D3 5 mcg (200 unit) tablet (Oyster Shell Calcium-Vitamin D3) fluticasone propionate 50 1 spray intranasal QDAYP PRN Sinus 12/02/16 11/17/21 mcg/actuation nasal congestion ##0 spray,suspension (Flonase Allergy Relief) levothyroxine 50 mcg tablet 50 mcg PO DAILY 08/12/21 11/17/21 (Synthroid) losartan 100 mg tablet (Cozaar) 100 mg PO DAILY 08/12/21 11/17/21 amlodipine 5 mg tablet 2.5 mg DAILY 11/13/21 11/17/21 omeprazole 20 mg capsule,delayed 20 mg DAILY 11/13/21 11/17/21 release simvastatin 10 mg tablet 10 mg DAILY 11/13/21 11/17/21 Allergies Allergy/AdvReac Type Severity Reaction Status Date / Time enoxaparin [From LOVENOX] Allergy Severe ITCHING Verified 11/17/21 11:44 adhesive tape [ADHESIVE TAPE] Allergy Mild ERYTHEMA Verified 11/17/21 11:44 AT SITE Review of Systems <Roseline Dumont PA-C - Last Filed: 06/06/23 11:01> Review of Systems ROS Unobtainable: All systems reviewed & are unremarkable except as noted in HPI and below Patient History <Roseline Dumont PA-C - Last Filed: 06/06/23 11:01> Medical History Rosacea (~2018) Allergies Osteopenia (~2014) Measles (~1948) Chicken pox (~1947) Painful menstrual periods (~1955) Ovarian cyst (~1963) Fibroids (~1963) Endometriosis (~1963) Hemorrhoid (~1979) Colon polyps (~2015) Thyroid nodule (~1984) Hypothyroidism (~1984) Surgical History Anesthesia History of left knee replacement (~2015) History of right hip replacement (~2009) History of foot surgery (~1993) History of surgical removal of lesion History of nasal surgery (~1984) Perianal abscess (~1982) History of hysterectomy (~1973) Hx of removal of ovary (~1963) History of tonsillectomy and adenoidectomy (~1950) Family History Sister Macular degeneration Social History household members: spouse Smoking Status: Former smoker alcohol intake: current Smoking Status: Former smoker alcohol intake frequency: holidays/special occasions only Substance Use Type: does not use Exam <Roseline Dumont PA-C - Last Filed: 06/06/23 11:01> Narrative Exam Narrative: GENERAL: 82 year old patient appears younger than her stated age. Well-developed patient, in no distress. HEAD: Atraumatic. Normocephalic. EYES: Pupils equal round and reactive. Extraocular motions intact. No scleral icterus. No injection or drainage. ENT: Nose without bleeding, purulent drainage. Throat without erythema, tonsillar hypertrophy or exudate. TM's pearly bilarterally. NECK: Trachea midline. Non tender, no LAD CARDIOVASCULAR: Regular rate and rhythm without murmurs, gallops, or rubs. RESPIRATORY: Clear to auscultation. Breath sounds equal bilaterally. No wheezes, rales, or rhonchi. GASTROINTESTINAL: Abdomen soft, non-tender, nondistended. Normoactive bowel sounds. EXTREMITIES: No edema or joint tenderness. NEURO: AOx3. Cranial nerves 2-12 intact. Ambulates without difficulty. SKIN: No rash or erythema of visible areas Initial Vital Signs Initial Vital Signs: Vital Signs Temperature 99.2 F 06/05/23 16:07 Pulse Rate 80 06/05/23 16:07 Respiratory Rate 16 06/05/23 16:07 Blood Pressure 171/73 H 06/05/23 16:07 Pulse Oximetry 98 06/05/23 16:07 Oxygen Delivery Method Room Air 06/05/23 16:07 <Asad Messer DO - Last Filed: 06/06/23 19:07> Initial Vital Signs Initial Vital Signs: Vital Signs Temperature 99.2 F 06/05/23 16:07 Pulse Rate 80 06/05/23 16:07 Respiratory Rate 16 06/05/23 16:07 Blood Pressure 171/73 H 06/05/23 16:07 Pulse Oximetry 98 06/05/23 16:07 Oxygen Delivery Method Room Air 06/05/23 16:07 <Ada Perry DO - Last Filed: 06/12/23 02:47> Initial Vital Signs Initial Vital Signs: Vital Signs Temperature 99.2 F 06/05/23 16:07 Pulse Rate 80 06/05/23 16:07 Respiratory Rate 16 06/05/23 16:07 Blood Pressure 171/73 H 06/05/23 16:07 Pulse Oximetry 98 06/05/23 16:07 Oxygen Delivery Method Room Air 06/05/23 16:07 Course <Roseline Dumont PA-C - Last Filed: 06/06/23 11:01> Orders Ordered: ED Orders 06/05/23 16:00 Urine Microscopic Stat 06/05/23 17:42 CT head/brain wo con Stat EKG-12 Lead Stat 06/05/23 18:05 CBC Auto Diff [Complete Blood Count AUTO DIFF] Stat CMP [Comprehensive Metabolic Panel] Stat Covid-19 + FLU A/B + RSV - PCR Stat PTT Partial Thromboplastin Clarke Stat Prothrombin Time INR Stat Vital Signs Vital signs: Vital Signs - 8 hr 06/05/23 16:07 06/05/23 16:42 06/05/23 18:08 Temperature 99.2 F 98.4 F Pulse Rate 80 67 Pulse Rate [Orthostatic Lying] Pulse Rate [Orthostatic Sitting] Pulse Rate [Orthostatic Standing] Respiratory Rate 16 Blood Pressure 171/73 H Blood Pressure [Orthostatic Lying] Blood Pressure [Orthostatic Sitting] Blood Pressure [Orthostatic Standing] Pulse Oximetry 98 98 Oxygen Delivery Method Room Air 06/05/23 18:08 06/05/23 18:13 Temperature Pulse Rate Pulse Rate [Orthostatic Lying] 63 Pulse Rate [Orthostatic Sitting] 75 Pulse Rate [Orthostatic Standing] 65 Respiratory Rate Blood Pressure 202/83 H Blood Pressure [Orthostatic Lying] 202/83 H Blood Pressure [Orthostatic Sitting] 180/77 H Blood Pressure [Orthostatic Standing] 199/85 H Pulse Oximetry Oxygen Delivery Method <Asad Messer, DO - Last Filed: 06/06/23 19:07> Orders Ordered: ED Orders 06/05/23 16:00 Urine Microscopic Stat 06/05/23 17:42 CT head/brain wo con Stat EKG-12 Lead Stat 06/05/23 18:05 CBC Auto Diff [Complete Blood Count AUTO DIFF] Stat CMP [Comprehensive Metabolic Panel] Stat Covid-19 + FLU A/B + RSV - PCR Stat PTT Partial Thromboplastin Clarke Stat Prothrombin Time INR Stat Vital Signs Vital signs: Vital Signs - 8 hr 06/05/23 16:07 06/05/23 16:42 06/05/23 18:08 Temperature 99.2 F 98.4 F Pulse Rate 80 67 Pulse Rate [Orthostatic Lying] Pulse Rate [Orthostatic Sitting] Pulse Rate [Orthostatic Standing] Respiratory Rate 16 Blood Pressure 171/73 H Blood Pressure [Orthostatic Lying] Blood Pressure [Orthostatic Sitting] Blood Pressure [Orthostatic Standing] Pulse Oximetry 98 98 Oxygen Delivery Method Room Air 06/05/23 18:08 06/05/23 18:13 Temperature Pulse Rate Pulse Rate [Orthostatic Lying] 63 Pulse Rate [Orthostatic Sitting] 75 Pulse Rate [Orthostatic Standing] 65 Respiratory Rate Blood Pressure 202/83 H Blood Pressure [Orthostatic Lying] 202/83 H Blood Pressure [Orthostatic Sitting] 180/77 H Blood Pressure [Orthostatic Standing] 199/85 H Pulse Oximetry Oxygen Delivery Method <Ada Perry DO - Last Filed: 06/12/23 02:47> Orders Ordered: ED Orders 06/05/23 16:00 Urine Microscopic Stat 06/05/23 17:42 CT head/brain wo con Stat EKG-12 Lead Stat 06/05/23 18:05 CBC Auto Diff [Complete Blood Count AUTO DIFF] Stat CMP [Comprehensive Metabolic Panel] Stat Covid-19 + FLU A/B + RSV - PCR Stat PTT Partial Thromboplastin Clarke Stat Prothrombin Time INR Stat Vital Signs Vital signs: Vital Signs - 8 hr 06/05/23 16:07 06/05/23 16:42 06/05/23 18:08 Temperature 99.2 F 98.4 F Pulse Rate 80 67 Pulse Rate [Orthostatic Lying] Pulse Rate [Orthostatic Sitting] Pulse Rate [Orthostatic Standing] Respiratory Rate 16 Blood Pressure 171/73 H Blood Pressure [Orthostatic Lying] Blood Pressure [Orthostatic Sitting] Blood Pressure [Orthostatic Standing] Pulse Oximetry 98 98 Oxygen Delivery Method Room Air 06/05/23 18:08 06/05/23 18:13 Temperature Pulse Rate Pulse Rate [Orthostatic Lying] 63 Pulse Rate [Orthostatic Sitting] 75 Pulse Rate [Orthostatic Standing] 65 Respiratory Rate Blood Pressure 202/83 H Blood Pressure [Orthostatic Lying] 202/83 H Blood Pressure [Orthostatic Sitting] 180/77 H Blood Pressure [Orthostatic Standing] 199/85 H Pulse Oximetry Oxygen Delivery Method MDM - Dizziness <Roseline Dumont PA-C - Last Filed: 06/06/23 11:01> Differential Diagnosis Differential diagnosis: Likely benign paroxysmal positional vertigo and other (seasonal allergies, metabolic process, urinary incontinence.) Lab Data 06/05/23 18:05 06/05/23 18:05 Labs: Lab Results 06/05/23 06/05/23 Range/Units 16:00 18:05 WBC 6.3 (4.5-11.0) X10^3/uL RBC 4.52 (4.0-5.2) X10^6/uL Hgb 13.6 (12.0-16.0) g/dL Hct 40.3 (36-46) % MCV 89.2 (80-100) fL MCH 30.1 (26-34) PG MCHC 33.7 (30-36) % RDW 14.1 (11.6-14.8) % Plt Count 190 (150-400) X10^3/uL Neut % (Auto) 73.8 (50-75) % Lymph % (Auto) 18.0 L (25-40) % Cata[place] % (Auto) 6.1 (3-14) % Eos % (Auto) 1.6 L (2-4) % Baso % (Auto) 0.5 (0-2) % Neut # (Auto) 4600 (7782-8044) /uL Lymph # (Auto) 1100 (2991-2262) /uL [place] # (Auto) 400 (0-900) /uL Eos # (Auto) 100 (0-450) /uL Baso # (Auto) 0 (0-100) /uL PT 13.4 H (9.4-12.5) SECONDS INR 1.2 (0.9-1.3) APTT 28 (25.1-36.5) SECONDS Sodium 140 (137-145) mmol/L Potassium 4.2 (3.4-5.1) mmol/L Chloride 107 (98-107) mmol/L Carbon Dioxide 28 (22-32) mmol/L BUN 22 H (7-17) mg/dL Creatinine 0.70 (0.52-1.04) mg/dL Estimated GFR > 60 (>60) mL/min BUN/Creatinine Ratio 31.4 H (6-22) Glucose 88 (80-110) mg/dL Calcium 10.2 (8.4-10.2) mg/dL Total Bilirubin 0.7 (0.2-1.3) mg/dL AST 30 (14-36) IU/L ALT 26 (<35) IU/L Alkaline Phosphatase 74 (38-126) U/L Total Protein 7.9 (6.3-8.2) g/dL Albumin 4.5 (3.5-5.0) g/dL Globulin 3.4 (1.7-4.1) g/dL Albumin/Globulin Ratio 1.3 (1.0-2.8) Urine RBC None seen (0-5/HPF) Urine WBC None seen (0-5/HPF) Ur Squamous Epith Cells None seen (0-5/HPF) Urine Bacteria None seen (None) Ur Culture Indicated? Cult not indicated SARS-CoV-2 (PCR) Negative (Negative) Influenza A (RT-PCR) Flu a negative (NEGATIVE) Influenza B (RT-PCR) Flu b negative (NEGATIVE) RSV (PCR) Negative (Negative) Urine Dip Bedside Urine Glucose Negative Bedside Urine Bilirubin - Negative Bedside Urine Ketone - Negative Urine Specific [place] 1.005 Bedside Urine Occult Blood + Bedside Urine pH 6.5 Bedside Urine Protein - Negative Bedside Urine Urobilinogen - Negative Bedside Urine Nitrite - Negative Bedside Urine Leukocytes - Negative Esterase Imaging Data CT scan - head: Radiologist's Impression: PROCEDURE: CT HEAD/BRAIN WO CON INDICATIONS: Dizziness TECHNIQUE: Noncontrast 4.5 mm thick angled axial sections acquired from the foramen magnum to the vertex, with coronal and sagittal reformats. For radiation dose reduction, the following was used: automated exposure control, adjustment of mA and/or kV according to patient size. COMPARISON: [facility], MR, MR HEAD/BRAIN WO/W CON, 08/21/2021, 12:22. [facility], CT, CT HEAD/BRAIN WO CON, 08/15/2021, 17:02. [facility], CT, CT HEAD/BRAIN WO CON, 09/01/2021, 23:26. FINDINGS: Image quality: Excellent. CSF spaces: Basal cisterns are patent. No extra-axial fluid collections. The ventricles are symmetric in size and shape. Brain: No intracranial bleeds or masses. There is cerebral volume loss for age, with resultant ventricular and sulcal prominence. There are periventricular and deep white matter chronic small vessel ischemic changes. There is intracranial internal carotid artery atherosclerosis. Skull and face: Calvarium and visualized facial bones appear intact, without suspicious lesions. Sinuses: Visualized sinuses and mastoids are clear. Postoperative change the right maxillary sinus can be seen. IMPRESSION: Intracranial study within normal limits for age. If it would be helpful for clinical management decision making, please consider a dedicated, scheduled brain MRI for further evaluation (assuming that there is no contraindication). Dictated by: Bobby Sanders M.D. on 06/05/2023 at 17:23 Approved by: Bobby Sanders M.D. on 06/05/2023 at 17:26 [facility] Narrative Medical decision making narrative: CT scan negative. Upper respiratory symptoms are not severe and I suspect seasonal allergies. The accompany intermittent dizziness may be related to eustachian tube issue or other process, but metabolic panel is within normal limits and patient's mental status and ambulation reassuring. There is no evidence of urinary tract infection so I suspect new onset overactive bladder. This patient was seen and discussed with and Dr Messer who agree with the assessment and plan. <Asad Messer, DO - Last Filed: 06/06/23 19:07> Lab Data Labs: Lab Results 06/05/23 06/05/23 Range/Units 16:00 18:05 WBC 6.3 (4.5-11.0) X10^3/uL RBC 4.52 (4.0-5.2) X10^6/uL Hgb 13.6 (12.0-16.0) g/dL Hct 40.3 (36-46) % MCV 89.2 (80-100) fL MCH 30.1 (26-34) PG MCHC 33.7 (30-36) % RDW 14.1 (11.6-14.8) % Plt Count 190 (150-400) X10^3/uL Neut % (Auto) 73.8 (50-75) % Lymph % (Auto) 18.0 L (25-40) % Cataño % (Auto) 6.1 (3-14) % Eos % (Auto) 1.6 L (2-4) % Baso % (Auto) 0.5 (0-2) % Neut # (Auto) 4600 (4072-3543) /uL Lymph # (Auto) 1100 (4838-7481) /uL Cataño # (Auto) 400 (0-900) /uL Eos # (Auto) 100 (0-450) /uL Baso # (Auto) 0 (0-100) /uL PT 13.4 H (9.4-12.5) SECONDS INR 1.2 (0.9-1.3) APTT 28 (25.1-36.5) SECONDS Sodium 140 (137-145) mmol/L Potassium 4.2 (3.4-5.1) mmol/L Chloride 107 (98-107) mmol/L Carbon Dioxide 28 (22-32) mmol/L BUN 22 H (7-17) mg/dL Creatinine 0.70 (0.52-1.04) mg/dL Estimated GFR > 60 (>60) mL/min BUN/Creatinine Ratio 31.4 H (6-22) Glucose 88 (80-110) mg/dL Calcium 10.2 (8.4-10.2) mg/dL Total Bilirubin 0.7 (0.2-1.3) mg/dL AST 30 (14-36) IU/L ALT 26 (<35) IU/L Alkaline Phosphatase 74 (38-126) U/L Total Protein 7.9 (6.3-8.2) g/dL Albumin 4.5 (3.5-5.0) g/dL Globulin 3.4 (1.7-4.1) g/dL Albumin/Globulin Ratio 1.3 (1.0-2.8) Urine RBC None seen (0-5/HPF) Urine WBC None seen (0-5/HPF) Ur Squamous Epith Cells None seen (0-5/HPF) Urine Bacteria None seen (None) Ur Culture Indicated? Cult not indicated SARS-CoV-2 (PCR) Negative (Negative) Influenza A (RT-PCR) Flu a negative (NEGATIVE) Influenza B (RT-PCR) Flu b negative (NEGATIVE) RSV (PCR) Negative (Negative) Urine Dip Bedside Urine Glucose Negative Bedside Urine Bilirubin - Negative Bedside Urine Ketone - Negative Urine Specific [place] 1.005 Bedside Urine Occult Blood + Bedside Urine pH 6.5 Bedside Urine Protein - Negative Bedside Urine Urobilinogen - Negative Bedside Urine Nitrite - Negative Bedside Urine Leukocytes - Negative Esterase <Ada Perry, DO - Last Filed: 06/12/23 02:47> Lab Data Labs: Lab Results 06/05/23 06/05/23 Range/Units 16:00 18:05 WBC 6.3 (4.5-11.0) X10^3/uL RBC 4.52 (4.0-5.2) X10^6/uL Hgb 13.6 (12.0-16.0) g/dL Hct 40.3 (36-46) % MCV 89.2 (80-100) fL MCH 30.1 (26-34) PG MCHC 33.7 (30-36) % RDW 14.1 (11.6-14.8) % Plt Count 190 (150-400) X10^3/uL Neut % (Auto) 73.8 (50-75) % Lymph % (Auto) 18.0 L (25-40) % Cata[place] % (Auto) 6.1 (3-14) % Eos % (Auto) 1.6 L (2-4) % Baso % (Auto) 0.5 (0-2) % Neut # (Auto) 4600 (8862-2347) /uL Lymph # (Auto) 1100 (4144-7036) /uL [place] # (Auto) 400 (0-900) /uL Eos # (Auto) 100 (0-450) /uL Baso # (Auto) 0 (0-100) /uL PT 13.4 H (9.4-12.5) SECONDS INR 1.2 (0.9-1.3) APTT 28 (25.1-36.5) SECONDS Sodium 140 (137-145) mmol/L Potassium 4.2 (3.4-5.1) mmol/L Chloride 107 (98-107) mmol/L Carbon Dioxide 28 (22-32) mmol/L BUN 22 H (7-17) mg/dL Creatinine 0.70 (0.52-1.04) mg/dL Estimated GFR > 60 (>60) mL/min BUN/Creatinine Ratio 31.4 H (6-22) Glucose 88 (80-110) mg/dL Calcium 10.2 (8.4-10.2) mg/dL Total Bilirubin 0.7 (0.2-1.3) mg/dL AST 30 (14-36) IU/L ALT 26 (<35) IU/L Alkaline Phosphatase 74 (38-126) U/L Total Protein 7.9 (6.3-8.2) g/dL Albumin 4.5 (3.5-5.0) g/dL Globulin 3.4 (1.7-4.1) g/dL Albumin/Globulin Ratio 1.3 (1.0-2.8) Urine RBC None seen (0-5/HPF) Urine WBC None seen (0-5/HPF) Ur Squamous Epith Cells None seen (0-5/HPF) Urine Bacteria None seen (None) Ur Culture Indicated? Cult not indicated SARS-CoV-2 (PCR) Negative (Negative) Influenza A (RT-PCR) Flu a negative (NEGATIVE) Influenza B (RT-PCR) Flu b negative (NEGATIVE) RSV (PCR) Negative (Negative) Urine Dip Bedside Urine Glucose Negative Bedside Urine Bilirubin - Negative Bedside Urine Ketone - Negative Urine Specific [place] 1.005 Bedside Urine Occult Blood + Bedside Urine pH 6.5 Bedside Urine Protein - Negative Bedside Urine Urobilinogen - Negative Bedside Urine Nitrite - Negative Bedside Urine Leukocytes - Negative Esterase Discharge Plan Departure Patient Disposition: Home Clinical Impression: Dizziness, Environmental allergies, Increased urinary frequency Instructions: DI for Urinary Incontinence Activity Restrictions/Additional Instructions: Your head CT appears normal. Your urine is also clear without evidence of infection. Your physical exam is reassuring. Your lab work is within normal limits. I suspect the nasal discharge is possibly seasonal allergy related and can be treated with [id number] antihistamine such as Zyrtec or Claritin and this new onset sinus congestion could be contributing to these episodes of dizziness. I suggest you see your primary care provider as scheduled to discuss these issues and your urinary frequency in the meantime wear depends to prevent accidents. You can also discuss getting physical therapy for pelvic floor. Prescriptions: No Action calcium carbonate-vitamin D3 [Oyster Shell Calcium-Vit D3] 500 MG/200 IU tablet 1 tab PO BID Qty: 0 fluticasone propionate [Flonase Allergy Relief] 9.9 ML spray,suspension 1 spray Intranasal QDAYP PRN (Reason: Sinus congestion) Qty: 0 losartan [Cozaar] 100 mg tablet 100 mg PO DAILY levothyroxine [Synthroid] 50 mcg tablet 50 mcg PO DAILY simvastatin 10 mg tablet 10 mg DAILY amlodipine 5 mg tablet 2.5 mg DAILY omeprazole 20 mg capsule,delayed release(DR/EC) 20 mg DAILY Referrals: Rhona Salomon MD [Primary Care Provider] - Stand Alone Forms: Patient Portal/API ED Sign-out <Asad Messer, DO - Last Filed: 06/06/23 19:07> Cosign ED Attending Cosignature Attestation: Dr Messer Co-Sign Statement: I was available for consultation during this patient's emergency department visit. This chart is signed by myself for administrative purposes only. I did not have direct contact with this patient during this visit. They were seen independently by the APC. <Ada Perry, DO - Last Filed: 06/12/23 02:47> Cosign ED Attending Cosignature Attestation: Dr Messer Co-Sign Statement: I was available for consultation during this patient's emergency department visit. This chart is signed by myself for administrative purposes only. I did not have direct contact with this patient during this visit. They were seen independently by the APC. I was immediately available in the department for consultation. Case was discussed to myself in terms of workup. I had left the department before final disposition.
[2023-06-05 18:36] LABS: INR 1.2 (0.9-1.3); Prothrombin Time 13.4 SECONDS (9.4-12.5)
[2023-06-05 18:38] LABS: PTT Partial Thromboplastin Tim 28 SECONDS (25.1-36.5)
[2023-06-05 18:41] LABS: Alanine Aminotransferase 26 IU/L (<35); Albumin 4.5 g/dL (3.5-5.0); Albumin Globulin Ratio 1.3 (1.0-2.8); Alkaline Phosphatase 74 U/L (38-126); Aspartate Aminotransferase 30 IU/L (14-36); BUN Creatinine Ratio 31.4 (6-22); Bilirubin Total 0.7 mg/dL (0.2-1.3); Blood Urea Nitrogen 22 mg/dL (7-17); Calcium 10.2 mg/dL (8.4-10.2); Carbon Dioxide 28 mmol/L (22-32); Chloride 107 mmol/L (98-107); Estimated Glomerular Filt Rate > 60 mL/min (>60); Globulin 3.4 g/dL (1.7-4.1); Glucose 88 mg/dL (80-110); HEMOLYSIS < 15 (0-50); Potassium 4.2 mmol/L (3.4-5.1); Sodium 140 mmol/L (137-145); Total Protein 7.9 g/dL (6.3-8.2)
[2023-06-05 18:54] LABS: Influenza A - CEPHEID Flu A NEGATIVE (NEGATIVE); Influenza B - CEPHEID Flu B NEGATIVE (NEGATIVE); Respiratory Syncytial Virus Negative (Negative)
[2023-06-05 19:07] LABS: COVID-19 CEPHEID 4-PLEX PCR Negative (Negative)
== END 2023-06-05 19:23 | disposition home or self-care (01) ==
PROVIDERS: Emergency Medicine; Emergency Provider Physician Assistant; PCP Family Medicine
DX: R42 Dizziness and giddiness (principal); T78.49XA Other allergy, initial encounter; R35.0 Frequency of micturition; X58.XXXA Exposure to other specified factors, initial encounter
CPT/HCPCS: 0241U; 36415; 51798; 70450; 80053; 81003; 81015; 85025; 85610; 85730; 99284

== ENCOUNTER → 2023-11-17 17:24 | Outpatient (CLI) | payer MEDICARE, OTHER, SELFPAY ==
[2023-11-17 18:07] LABS: Influenza A - CEPHEID Flu A NEGATIVE (NEGATIVE); Influenza B - CEPHEID Flu B NEGATIVE (NEGATIVE); Respiratory Syncytial Virus Negative (Negative)
[2023-11-17 18:08] LABS: COVID-19 CEPHEID 4-PLEX PCR Negative (Negative)
== END ==
PROVIDERS: PCP Family Medicine; Visit Provider Nurse Practitioner Family
DX: T78.40XA Allergy, unspecified, initial encounter (principal); R09.81 Nasal congestion; R05.1 Acute cough
CPT/HCPCS: 0241U

== ENCOUNTER → 2023-12-27 08:27 | Outpatient (CLI) | payer MEDICARE, OTHER, SELFPAY ==
--- NOTE | 2023-12-27 08:29 | DI.ECHO.S_ITS ---
Version: 1 Study ID: [id number] [place] [address] Name: HERIBERTO ENRIQUEZ Study Date: 12/27/2023, 8: 53 AM : 1940 BP: 166 / 83 mmHg Gender: Female Height: 65 in Age: 83 Years Weight: 120 lb BSA: 1.59 mA? Ordering: LAUREN PRUITT Referring: LAUREN PRUITT Clinician: Krishan Ni Reason For Study: MODERATE TRICUSPID REGURGITATION History: Summary Statements 1. The left ventricular contractility is borderline with estimated ejection fraction of 50 to 55%. No LVH is noted. No diastolic dysfunction present. 2. The right ventricular contractility is normal. 3. There is moderate left atrial enlargement noted. All other cardiac chambers are of normal size. 4. There is moderate to severe mitral regurgitation noted. 5. Mild to moderate tricuspid regurgitation noted. Estimated pulmonary systolic artery pressure is 45 mmHg. 6. No obvious intracardiac shunts noted. 7. No obvious intracardiac masses nor thrombi appreciated. 8. No hemodynamically significant pericardial effusion identified. Conclusion: Borderline left ventricular systolic function with moderate to severe mitral regurgitation. Given the presence of borderline systolic function of the LV, the degree of mitral regurgitation may be underestimated. Procedure: A two-dimensional transthoracic echocardiogram with color flow and Doppler was performed. The study quality was technically adequate. Comparison is made with the echocardiogram of 11/17/2022. The patient was in atrial fibrillation with heart rates between 69-83 bpm during the exam. Left Ventricle: The left ventricle is normal in size and wall thickness. The ejection fraction is estimated to be 50-55%. Right Ventricle: The right ventricle is normal size. The right ventricular systolic function is normal. Atria: The left atrium is moderately dilated. Right atrial size is normal. The interatrial septum grossly appears intact with no obvious evidence for an atrial septal defect. Mitral Valve: The mitral valve is grossly normal. There is no mitral valve stenosis. There is moderate to severe mitral regurgitation. There are multiple regurgitant jets present. Aortic Valve: The aortic valve is trileaflet. There is no aortic valve stenosis. No aortic regurgitation is present. Tricuspid Valve: The tricuspid valve is not well visualized, but is grossly normal. There is no tricuspid stenosis. The right ventricular systolic pressure is estimated to be at least 45.4 mmHg based on an estimated right atrial pressure of 3 mm Hg. There is mild to moderate tricuspid regurgitation. Pulmonic Valve: The pulmonic valve is not well visualized. There is no pulmonic valvular stenosis. There is no pulmonic valvular regurgitation. Great Vessels: The aortic root is normal size. The ascending aorta could not be visualized. The IVC is of normal diameter and collapses greater than 50% with a sniff. This suggests a low right atrial pressure of 3 mm Hg. Pericardium/ Pleura: There is no pericardial effusion. There is no pleural effusion. 2D and M-Mode Measurements and Calculations LVIDd: 4.7 cm LVOT diam: 1.98 cm LVIDs: 3.2 cm Ao root diam: 3.2 cm IVSd: 0.80 cm LVPWd: 0.82 cm LV mcdonough. diameter/BSA (cm/m^2): 3.0 LV sys. diameter/BSA (cm/m^2): 1.98 RVD1 (basal): 3.5 cm RVD2 (mid): 3.0 cm TAPSE: 2.5 cm LA A4 area: 19.1 change control analyst? IVC diam: 1.70 cm LA A2 area: 21.2 change control analyst? RA area: 14.2 change control analyst? LA length (vol): 4.8 cm RA long axis: 4.6 cm LA vol: 71.0 ml RA vol: 36.8 ml LA vol index: 44.6 ml/mA? RA : 23.1 ml/mA? Doppler Measurements and Calculations Ao V2 max: 134.1 cm/sec LVOT Max Rajat: 94.3 cm/sec Ao V2 mean: 101.4 cm/sec LV V1 max P.6 mmHg Ao V2 VTI: 33.6 cm LV V1 VTI: 26.1 cm Ao max P.2 mmHg SV(LVOT): 80.7 ml Ao mean P.4 mmHg RADHA(I,D): 2.41 change control analyst? RADHA(V,D): 2.18 change control analyst? RADHA indexed to BSA (cm^2/m^2): 1.51 sev ratio: 0.78 MV E max rajat: 91.6 cm/sec MV dec time: 0.20 sec MV A max rajat: 81.3 cm/sec MV E/A: 1.13 Med Peak E' Rajat: 7.8 cm/sec Lat Peak E' Rajat: 13.6 cm/sec E/e' average: 9.2 TR max rajat: 325.7 cm/sec PA mean P.40 mmHg TR max P.4 mmHg PA V2 max: 102.3 cm/sec Electronically signed by: William Goyal 12/27/2023, 9: 02 PM
== END ==
PROVIDERS: PCP Family Medicine; Referring Provider Family Medicine; Visit Provider Family Medicine
DX: I08.1 Rheumatic disorders of both mitral and tricuspid valves (principal)
CPT/HCPCS: 93306

== ENCOUNTER → 2024-04-24 11:13 | Outpatient (CLI) | payer MEDICARE, OTHER, SELFPAY ==
--- NOTE | 2024-04-24 | DI.RAD.S_ITS ---
PROCEDURE: XR DEXA AXIAL SKELETON INDICATIONS: AGE RELATED OSTEOPOROSIS COMPARISON: [facility], ROSSY, XR DEXA AXIAL SKELETON, 11/17/2022, 10:23. FINDINGS: Lumbar Spine: Bone mineral density 1.368 g/cm2, T score 2.9, unchanged. Left Hip: Bone mineral density 0.746 g/cm2, T score -1.6, compared to -1.3. Left Femoral Neck: Bone mineral density 0.657 g/cm2, T score -1.7, compared to -1.8. Left Forearm: Bone mineral density 0.53 g/cm2, T score -2.6, unchanged. Fracture Risk Calculation (when applicable): Not applicable (T score greater or equal to -1.0 to: NORMAL) (T score from -1.1 to -2.4: OSTEOPENIA) (T score less than or equal to -2.5: OSTEOPOROSIS) IMPRESSION: [id number] osteopenia in the left hip and femoral neck slightly progressive in the hip. Unchanged osteoporosis in the forearm. Follow-up guidelines as follows: Osteoporosis: Consider a repeat DEXA and Vertebral Fracture Assessment (VFA) exam in 2 years or sooner if medically necessary, to reassess this patient's status. Osteopenia: Consider a repeat DEXA in 2-3 years to reassess this patient's status, or if there is a new clinical indication. Normal: Consider a repeat DEXA in 5 years or sooner, or if there is a new clinical indication. All treatment decisions require clinical judgment and consideration of individual patient factors, including patient preferences, comorbidities, previous drug use, risk factors not captured in the FRAX model (e.g., frailty, falls, vitamin D deficiency, increased bone turnover, interval significant decline in bone density ) and possible under- or over-estimation of fracture risk by FRAX. In addition, the NOF Guide recommends that FDA-approved medical therapies be considered in postmenopausal women and men age >= 50 years with a: * Hip or vertebral (clinical or morphometric) fracture * T-score of <=-2.5 at the spine or hip * Ten-year fracture probability by FRAX of >= 3% for hip fracture or >=20% for major osteoporotic fracture. People with diagnosed cases of osteoporosis or at high risk for fracture should have regular bone mineral density tests. For patients eligible for Medicare, routine testing is allowed once every 2 years. The testing frequency can be increased to one year for patients who have rapidly progressing disease, those who are receiving or discontinuing medical therapy to restore bone mass, or have additional risk factors. Dictated by: Janny Jama M.D. on 04/24/2024 at 22:37 Approved by: Janny Jama M.D. on 04/24/2024 at 22:38
== END ==
PROVIDERS: PCP Family Medicine; Referring Provider Family Medicine; Visit Provider Family Medicine
DX: M81.0 Age-related osteoporosis without current pathological fracture (principal)
CPT/HCPCS: 77080; 77081

== ENCOUNTER 2024-12-26 13:37 | Emergency (ER) | payer MEDICARE, OTHER, SELFPAY ==
[2024-12-26] VITALS (9 sets, daily range): BP systolic 152–197; BP diastolic 68–95; PULSE 64–72; RESP 16–24; TEMP 36.7; O2SAT 91–99; BMI 21.1
--- NOTE | 2024-12-26 18:19 | ED.GENADULT ---
HPI - General Adult General Chief complaint: Dizziness Stated complaint: dizziness, low BP Time Seen by Provider: 12/26/24 18:19 Source: patient Mode of arrival: Ambulatory History of Present Illness HPI narrative: 84-year-old woman with a history of hypothyroidism, hypertension, reflux, hyperlipidemia and significant seasonal allergies. She presents today complaining of intermittent episodes of dizziness, seems to be worse when she is moving from a supine to a sitting position, not so noticeable going from sitting to standing and not so noticeable with lateral movements of the head. She does not describe significant vertigo, simply feeling unstable. She is not having palpitations, headaches, fevers, chest pain. Symptoms have been ongoing for months. 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 Apparently she wakes up quite hypotensive with systolics in the 95-105 range. Currently in the emergency department, 7:00 p.m. at night, blood pressure was 167/71 and on repeat was 196/93. Currently is on losartan daily, taken in the morning. Had initially been on 5 mg of amlodipine and with the continued complaints of dizziness and morning hypotension that has been weaned to off and she did not take a dose of her amlodipine yesterday or today. She is not complaining of any acute neurologic symptoms no significant cognitive changes no recent traumas She apparently has significant seasonal allergies that have been particularly horrible this season, she started Claritin approximately 3 weeks ago and is using a nasal steroid as well, she does follow up with ENT Related Data Home Medications ?Medication ?Instructions ?Recorded ?Confirmed calcium 500 mg (as 1 tab PO BID ##0 12/02/16 11/17/23 carbonate)-vitamin D3 5 mcg (200 unit) tablet (Oyster Shell Calcium-Vitamin D3) fluticasone propionate 50 1 spray intranasal QDAYP PRN Sinus 12/02/16 11/17/23 mcg/actuation nasal congestion ##0 spray,suspension (Flonase Allergy Relief) levothyroxine 50 mcg tablet 50 mcg PO DAILY 08/12/21 11/17/23 (Synthroid) losartan 100 mg tablet (Cozaar) 100 mg PO DAILY 08/12/21 11/17/23 amlodipine 5 mg tablet 2.5 mg DAILY 11/13/21 11/17/23 omeprazole 20 mg capsule,delayed 20 mg DAILY 11/13/21 11/17/23 release simvastatin 10 mg tablet 10 mg DAILY 11/13/21 11/17/23 Allergies Allergy/AdvReac Type Severity Reaction Status Date / Time enoxaparin (From LOVENOX) Allergy Severe ITCHING Verified 12/26/24 14:25 adhesive tape (ADHESIVE TAPE) Allergy Mild ERYTHEMA Verified 12/26/24 14:25 AT SITE Review of Systems Review of Systems Narrative: Pertinent positive and negative findings as per HPI Patient History Medical History Rosacea (~2018) Allergies Osteopenia (~2014) Measles (~1948) Chicken pox (~1947) Painful menstrual periods (~1955) Ovarian cyst (~1963) Fibroids (~1963) Endometriosis (~1963) Hemorrhoid (~1979) Colon polyps (~2015) Thyroid nodule (~1984) Hypothyroidism (~1984) Surgical History Anesthesia History of left knee replacement (~2015) History of right hip replacement (~2009) History of foot surgery (~1993) History of surgical removal of lesion History of nasal surgery (~1984) Perianal abscess (~1982) History of hysterectomy (~1973) Hx of removal of ovary (~1963) History of tonsillectomy and adenoidectomy (~1950) Family History Sister Macular degeneration Social History household members: spouse Smoking Status: Former smoker alcohol intake: current Smoking Status: Former smoker alcohol intake frequency: holidays/special occasions only Exam Initial Vital Signs Initial Vital Signs: Vital Signs Temperature 98.1 F 12/26/24 14:25 Pulse Rate 72 12/26/24 14:25 Respiratory Rate 16 12/26/24 14:25 Blood Pressure 167/71 H 12/26/24 14:25 Pulse Oximetry 95 12/26/24 14:25 Oxygen Delivery Method Room Air 12/26/24 14:25 General: Healthy appearing, in no acute distress. Able to give a complete and coherent history. Well-nourished well-developed HEENT: Moist mucous membranes, normal sclera with reactive pupils, no nystagmus with provocative maneuvers. When she does complain of dizziness moving from a supine to a sitting position there is no nystagmus Neck: Moderate arthritic restrictions. Her rotational extension is limited but not painful. Respiratory: Lungs are clear to auscultation, no wheezing no rales no rhonchi. Full and symmetrical air movement Cardiac: Regular rate and rhythm no murmurs no bruits Abdomen: Soft, nontender, no rebound or guarding, no flank pain Skin: Warm and dry, no rashes Neurologic: Grossly neurologically intact with no obvious asymmetries or abnormalities Extremities: No trauma, no lower extremity edema Psych: Cooperative, appropriate insight and affect Course Orders Ordered: Discontinued Medications Losartan Potassium (Losartan 50 Mg Tablet) 100 mg PO NOW ONE Stop: 12/26/24 19:43 Last Admin: 12/26/24 19:52 Dose: 100 mg Documented By: LIDA Vital Signs Vital signs: Vital Signs - 8 hr 12/26/24 14:25 12/26/24 16:27 Temperature 98.1 F Pulse Rate 72 68 Respiratory Rate 16 Blood Pressure 167/71 H 152/68 H Pulse Oximetry 95 98 Oxygen Delivery Method Room Air Room Air Medical Decision Making Lab Data 12/26/24 18:46 12/26/24 18:46 Labs: Lab Results 12/26/24 Range/Units 18:46 WBC 5.8 (4.5-11.0) X10^3/uL RBC 4.35 (4.0-5.2) X10^6/uL Hgb 13.3 (12.0-16.0) g/dL Hct 39.7 (36-46) % MCV 91.1 (80-100) fL MCH 30.6 (26-34) PG MCHC 33.6 (30-36) % RDW 13.5 (11.6-14.8) % Plt Count 190 (150-400) X10^3/uL Neut % (Auto) 71.6 (50-75) % Lymph % (Auto) 18.8 L (25-40) % Garfield % (Auto) 6.3 (3-14) % Eos % (Auto) 2.8 (2-4) % Baso % (Auto) 0.5 (0-2) % Neut # (Auto) 4100 (6832-2616) /uL Lymph # (Auto) 1100 (6418-2990) /uL Garfield # (Auto) 400 (0-900) /uL Eos # (Auto) 200 (0-450) /uL Baso # (Auto) 0 (0-100) /uL Sodium 142 (137-145) mmol/L Potassium 4.2 (3.4-5.1) mmol/L Chloride 107 (98-107) mmol/L Carbon Dioxide 29 (22-32) mmol/L BUN 20 H (7-17) mg/dL Creatinine 0.83 (0.52-1.04) mg/dL Estimated GFR > 60 (>60) mL/min BUN/Creatinine Ratio 24.1 H (6-22) Glucose 114 H (70-99) mg/dL Calcium 9.5 (8.4-10.2) mg/dL Total Bilirubin 0.5 (0.2-1.3) mg/dL AST 29 (14-36) IU/L ALT 22 (<35) IU/L Alkaline Phosphatase 73 (38-126) U/L Troponin I < 0.012 (0.01-0.034) ng/mL Total Protein 7.7 (6.3-8.2) g/dL Albumin 4.6 (3.5-5.0) g/dL Globulin 3.1 (1.7-4.1) g/dL Albumin/Globulin Ratio 1.5 (1.0-2.8) MDM Narrative Medical decision making narrative: CC: Dizziness Complicating co-morbidities: Hypertension with change to medications in morning low blood pressures evening high blood pressures, significant seasonal allergies, neck arthritis, Data collected from: patient, daughter Medical records reviewed: Most recent head CT was May of [address] , CT angiogram and MRI all done in 2021. All of the studies were unrevealing Differential considered: Benign positional vertigo, stroke, seasonal allergies, consequences from neck arthritis, medication side effects, orthostatic hypotension Exam documented above, pertinent findings include: Aside from mild decreased range of motion with rotation of her neck due to chronic arthritis her exam is quite benign with a completely normal neurologic exam Lab Test results independently reviewed as above. Pertinent findings: CBC is unremarkable Chemistries are reassuring with normal renal function and electrolytes Troponin is undetected Discussion: 84-year-old woman with chronic intermittent dizziness seemingly worse over the past number of weeks. Manipulation of blood pressure medications, addition of sinus medications. At this time there is no indication of life-threatening event such as stroke, significant anemia, infection and nothing on her clinical exam to suggest increased intracranial pressure or intracranial mass. I suspect that her dizziness is multifactorial and related to both medications, sinuses and neck arthritis. Regarding her blood pressure I am going to suggest that she change her losartan dosing from morning tonight and continue to check blood pressures morning and evening to see if that proves more compatible with her baseline circadian rhythms. At this time there was no indication for further workup or hospitalization and she is safe for discharge Discharge Plan Departure Patient Disposition: Home Clinical Impression: Cervicogenic dizziness Instructions: DI for Dizziness-Nonvertigo Activity Restrictions/Additional Instructions: Thank you for coming in today. I do not have a life-threatening explanation for your intermittent episodes of dizziness. I would recommend that you do continue your Claritin as well as your nasal sprays. This may be related to your sinuses with contributing factors from your neck arthritis. Regarding your blood pressure, seems to be quite low in the morning moderately elevated in the evenings. I am going to suggest that you take your losartan this evening and change the dosing for that medication to evening time. Please take blood pressure readings morning and evening to see how it is fluctuating and see if this time change maybe enough to even out blood pressures. Despite the low blood pressure readings that you are experiencing this does not seem to be related actually to your dizziness. I think both problems are true and likely not obviously related Please do keep your follow up appointment with Dr. Salomon If you find that you are getting worse or develop any new symptoms, please feel free to return to the emergency department for further evaluation. Prescriptions: No Action calcium carbonate-vitamin D3 [Oyster Shell Calcium-Vit D3] 500 MG/200 IU tablet 1 tab PO BID Qty: 0 fluticasone propionate [Flonase Allergy Relief] 9.9 ML spray,suspension 1 spray Intranasal QDAYP PRN (Reason: Sinus congestion) Qty: 0 losartan [Cozaar] 100 mg tablet 100 mg PO DAILY levothyroxine [Synthroid] 50 mcg tablet 50 mcg PO DAILY simvastatin 10 mg tablet 10 mg DAILY amlodipine 5 mg tablet 2.5 mg DAILY omeprazole 20 mg capsule,delayed release(DR/EC) 20 mg DAILY Referrals: Rhona Salomon MD [Primary Care Provider, Family Practice] Stand Alone Forms: Patient Portal/API
[2024-12-26 19:00] LABS: Add Manual Diff / Slide Review NO; Basophils Absolute Auto 0 /uL (0-100); Basophils Percent Auto 0.5 % (0-2); Eosinophils Absolute Auto 200 /uL (0-450); Eosinophils Percent Auto 2.8 % (2-4); Hematocrit 39.7 % (36-46); Hemoglobin 13.3 g/dL (12.0-16.0); Lymphocytes Absolute Auto 1100 /uL (1100-4500); Lymphocytes Percent Auto 18.8 % (25-40); Mean Corpuscular HGB Conc 33.6 % (30-36); Mean Corpuscular Hemoglobin 30.6 PG (26-34); Mean Corpuscular Volume 91.1 fL (80-100); Monocytes Absolute Auto 400 /uL (0-900); Monocytes Percent Auto 6.3 % (3-14); Neutrophils Absolute Auto 4100 /uL (1500-7000); Neutrophils Percent Auto 71.6 % (50-75); Platelet Count 190 X10^3/uL (150-400); Red Blood Cell Count 4.35 X10^6/uL (4.0-5.2); Red Cell Distribution Width 13.5 % (11.6-14.8); White Blood Cell Count 5.8 X10^3/uL (4.5-11.0)
[2024-12-26 19:10] LABS: Alanine Aminotransferase 22 IU/L (<35); Albumin 4.6 g/dL (3.5-5.0); Albumin Globulin Ratio 1.5 (1.0-2.8); Alkaline Phosphatase 73 U/L (38-126); Aspartate Aminotransferase 29 IU/L (14-36); BUN Creatinine Ratio 24.1 (6-22); Bilirubin Total 0.5 mg/dL (0.2-1.3); Blood Urea Nitrogen 20 mg/dL (7-17); Calcium 9.5 mg/dL (8.4-10.2); Carbon Dioxide 29 mmol/L (22-32); Chloride 107 mmol/L (98-107); Estimated Glomerular Filt Rate > 60 mL/min (>60); Globulin 3.1 g/dL (1.7-4.1); Glucose 114 mg/dL (70-99); HEMOLYSIS < 15 (0-50); Potassium 4.2 mmol/L (3.4-5.1); Sodium 142 mmol/L (137-145); Total Protein 7.7 g/dL (6.3-8.2)
[2024-12-26 19:22] LABS: Troponin I < 0.012 ng/mL (0.01-0.034)
[2024-12-26] MEDS: LOSARTAN 50 MG TABLET 100 MG PO (19:52)
== END 2024-12-26 20:03 | disposition home or self-care (01) ==
PROVIDERS: Emergency Provider Emergency Medicine; PCP Family Medicine
DX: R42 Dizziness and giddiness (principal)
CPT/HCPCS: 36415; 80053; 84484; 85025; 99283

== ENCOUNTER → 2025-02-16 12:50 | Outpatient (CLI) | payer MEDICARE, OTHER, SELFPAY ==
--- NOTE | 2025-02-16 12:52 | DI.MRI.S_ITS ---
PROCEDURE: MR STROKE Pre- and post-contrast brain MRI, non-contrast brain MR angiogram, pre- and postcontrast neck MR angiogram INDICATIONS: DIZZINESS AND GIDDYNESS TECHNIQUE: Brain: Noncontrast axial T1 spin echo, axial T2 fast spin echo, sagittal and axial FLAIR, coronal T2 fast spin echo, axial gradient echo, axial diffusion and ADC through the brain. After the administration of contrast, axial 3D VIBE of the cranial vasculature and brain. Brain MRA: Non-contrast 3-D time of flight MR angiogram, with multiple jqkfsnc-khxbzjccy-hjkyljeysk (MIP) reformats performed. Neck MRA: Axial and sagittal TruFISP through the neck. Coronal dynamic MR angiogram during administration of contrast in the arterial and venous phases, with 3- dimenstional nzvwcjn-mfwgjauuu-bchbzjijnd (MIP) reformats constructed from subtraction images. COMPARISON: [facility], CT, CT ANGIO HEAD AND NECK, 09/01/2021, 23:26. [facility], CT, CT HEAD/BRAIN WO CON, 06/05/2023, 17:48. FINDINGS: Image quality: Excellent. BRAIN: CSF spaces: Ventricles are normal in size and shape. Basal cisterns are patent. No extra-axial fluid collections. Brain: No intracranial bleeds or mass effects. Lopes-white matter interface is normal. Diffusion weighted images show no acute infarct. Brainstem appears normal. Normal intravascular flow voids are present. No abnormal intracranial enhancement. Note is made of age-appropriate brain parenchymal volume loss and chronic small vessel ischemic changes. Skull and face: Calvarial marrow signal is normal. Orbits appear normal. Sinuses: Sinuses and mastoids are clear. BRAIN MR ANGIOGRAM: Anterior circulation: Intracranial internal carotid arteries are normal in size and enhancement. The flow within the paired anterior cerebral arteries is normal and symmetric. The flow within the middle cerebral arteries is normal and symmetric. The anterior communicating artery is seen. No stenoses, occlusions, or aneurysms. Posterior circulation: The visualized portions of the vertebral arteries demonstrate normal caliber, and join to form a normal appearing basilar artery. The flow within the posterior cerebral arteries is normal and symmetric. No stenoses, occlusions, or aneurysms. NECK MR ANGIOGRAM: Carotids: Great vessels demonstrate a conventional anatomy as they arise from the aortic arch. The origins of the common carotid arteries appear patent. The calibers and courses of both common carotid arteries are normal. The bifurcation regions appear normal bilaterally. The internal carotid arteries demonstrate normal course and caliber. Posterior circulation: The origins of the vertebral arteries appear patent. More superior portions of both vertebral arteries demonstrate normal course and caliber, and join to form a normal appearing basilar artery. Miscellaneous: Subclavian arteries appear patent. Pre-contrast images through the neck show no soft tissue abnormalities. IMPRESSION: BRAIN MRI: No masses or abnormal enhancement can be seen. No findings of acute or subacute infarction can be seen. No prior territorial infarct can be seen. BRAIN MR ANGIOGRAM: No significant intracranial arterial abnormality is seen. NECK MR ANGIOGRAM: Within the arteries of the neck, no hemodynamically significant stenosis can be seen. Dictated by: Bobby Sanders M.D. on 02/16/2025 at 15:46 Approved by: Bobby Sanders M.D. on 02/16/2025 at 15:49
--- NOTE | 2025-02-16 12:53 | DI.ECHO.S_ITS ---
[facility]+ [facility] : : [address] : : [place] : : [id number] : : Phone: [phone] Echocardiogram Report + + :Name: HERIBERTO ENRIQUEZ Study Date: 02/16/2025 Height: 64 in : :[facility] ReadingLocation: Weight: 119 lb : : Gender: Female BSA: 1.6 m2 : :: 1940 Age: 84 yrs BP: 166/89 mmHg: :Reason For Study: TRICUSPID REGURGITATION : :Ordering Physician: SONAL, : :LAUREN Performed By: Krishan Ni : :Referring: LAUREN PRUITT : + + Interpretation Summary 1. The left ventricular contractility is borderline. Estimate ejection fraction is approximately 50 to 55% with no segmental wall motion abnormalities. No LVH. Grade 1 diastolic dysfunction. 2. The right ventricular contractility is normal. 3. Moderate left atrial enlargement. All other cardiac chambers are of normal size. 4. Moderate to severe mitral regurgitation. 5. Moderate tricuspid regurgitation with estimated pulmonary systolic artery pressures of 40 mmHg. 5. No obvious intracardiac shunts. 6. No obvious intracardiac masses nor thrombi. 7. No hemodynamically significant pericardial effusion. 8. Low right-sided filling pressures. Conclusion: Low normal left ventricular systolic function with moderate to severe valvular insufficiencies. When compared with previous echocardiogram, no significant changes have occurred in regards to the mitral and tricuspid regurgitation. Procedure: A two-dimensional transthoracic echocardiogram with color flow and Doppler was performed. The study quality was technically good. Comparison is made with the echocardiogram of 12/27/2023. The patient was in normal sinus rhythm during the exam. Left Ventricle: The left ventricle is normal in size. There is normal left ventricular wall thickness. There is no ventricular septal defect visualized. The ejection fraction is estimated to be 50-55%. There are no focal wall motion abnormalities. Grade I diastolic dysfunction with normal left atrial pressure. Right Ventricle: The right ventricle is normal in size and function. Atria: The left atrium is moderately dilated. Right atrial size is normal. There is no Doppler evidence for an interatrial shunt. Mitral Valve: There is mild to moderate mitral annular calcification. The mitral valve leaflets appear mildly thickened. There is moderate to severe mitral regurgitation. Aortic Valve: The aortic valve is trileaflet. The aortic valve opens well. No aortic regurgitation is present. Tricuspid Valve: The tricuspid valve leaflets are thin and pliable. There is moderate tricuspid regurgitation. The right ventricular systolic pressure is estimated to be at least 40 mmHg based on an estimated right atrial pressure of 3 mm Hg. Pulmonic Valve: The pulmonic valve is not well visualized. There is no pulmonic valvular regurgitation. Great Vessels: The aortic root is normal size. The ascending aorta could not be visualized. The pulmonary artery is normal size. The IVC is of normal diameter and collapses greater than 50% with a sniff. This suggests a low right atrial pressure of 3 mm Hg. Pericardium/ Pleura There is no pericardial effusion. There is no pleural effusion. MMode/2D Measurements & Calculations LVIDd: 5.2 cm LVOT diam: 1.9 cm LVIDs: 3.8 cm Ao root diam: 3.2 cm FS: 27.0 % EPSS: 0.66 cm IVSd: 0.75 cm LVPWd: 0.70 cm LV mcdonough. diameter/BSA (cm/m^2): 3.3 LV sys. diameter/BSA (cm/m^2): 2.4 LA A2 area: 19.6 cm2 RA long axis: 4.5 cm LA A4 area: 19.5 cm2 RA area: 12.7 cm2 LA length (vol): 4.8 cm RA vol: 30.8 ml LA vol: 67.5 ml RA : 19.6 ml/m2 LA vol index: 43.0 ml/m2 IVC diam: 0.87 cm RVD1 (basal): 3.2 cm RVD2 (mid): 2.2 cm TAPSE: 2.3 cm Doppler Measurements & Calculations Ao V2 max: 130.9 cm/sec LVOT Max Rajat: 89.7 cm/sec Ao V2 mean: 92.1 cm/sec LV V1 max P.2 mmHg Ao max P.9 mmHg LV V1 VTI: 21.9 cm Ao mean P.7 mmHg RADHA(I,D): 2.1 cm2 Ao V2 VTI: 28.4 cm RADHA(V,D): 1.9 cm2 sev ratio: 0.77 RADHA indexed to BSA (cm^2/m^2): 1.4 MV E max rajat: 79.4 cm/sec TR max rajat: 302.8 cm/sec MV A max rajat: 93.8 cm/sec TR max P.7 mmHg MV E/A: 0.85 PA V2 max: 99.1 cm/sec Med Peak E' Rajat: 4.4 cm/sec PA V2 mean: 66.0 cm/sec E/E' med: 18.2 PA mean P.0 mmHg Lat Peak E' Rajat: 9.6 cm/sec PA pr(Accel): 44.7 mmHg E/E' lat: 8.3 E/e' average: 13.2 MV dec time: 0.13 sec SV(LVOT): 60.6 ml Reading Physician:GEM
== END ==
LOC: MRI 12:51
PROVIDERS: PCP Family Medicine; Referring Provider Family Medicine; Visit Provider Family Medicine
DX: I08.1 Rheumatic disorders of both mitral and tricuspid valves (principal); R42 Dizziness and giddiness
CPT/HCPCS: 70544; 70549; 70553; 93306; A9579

== ENCOUNTER → 2025-04-25 14:41 | Outpatient (CLI) | payer MEDICARE, OTHER, SELFPAY ==
[2025-04-25 15:40] LABS: Influenza A - CEPHEID Flu A NEGATIVE (NEGATIVE); Influenza B - CEPHEID Flu B NEGATIVE (NEGATIVE)
[2025-04-25 15:45] LABS: COVID-19 CEPHEID 4-PLEX PCR Negative (Negative)
== END ==
PROVIDERS: PCP Family Medicine; Visit Provider Nurse Practitioner Family
DX: J02.9 Acute pharyngitis, unspecified (principal)
CPT/HCPCS: 87637